=== PATIENT | female | born 1940 | race Caucasian/White ===

== ENCOUNTER 2023-11-21 06:15 | Inpatient (IN) | payer OTHER, SELFPAY ==
--- NOTE | 2023-11-15 09:10 | CM ---
Patient is scheduled for an elective R TKR on 11/21/23. Spoke with patient prior to surgery via telephone. Introduced role of Orthopedic Navigator. Patient reports that she lives with her in a multi story home. There are no steps to enter,
five steps to the second level and then a flight of steps to the third floor. There is a powder room on the file clerk data entry. She currently requires assistance with bed mobility and putting on socks and shoes, otherwise she functions independently. She
also has a rolling walker and shower seat. She has never had VN services. PCP is Dr. Reagan Vu.
Discussed orthopedic program and post surgical plans. Reviewed anticipated length of stay and that goal is for her to return home at discharge. Also reviewed outpatient PT. Patient is in agreement with tentative plan but will benefit from VN
services. She will have support from her when she goes home.
Patient will complete online education.
Plan: Orthopedic Navigator will remain available to assist with the care of patient and will reassess discharge needs after surgery.
[2023-11-16 08:24] VITALS: BMI 24.5
[2023-11-16 10:03] LABS: Hematocrit 40.4 % (37.0-47.0); Hemoglobin 13.4 g/dL (12.0-16.0); Mean Corp Hgb Conc. 33.2 g/dL (33.0-37.0); Mean Corpuscular Volume 90.6 fL (81.0-99.0); Mean Platelet Volume 9.1 fL (7.4-10.4); Platelet Count 429 10^3/uL (130-400); Red Blood Cell Count 4.46 10^6/uL (4.20-5.40); Red Cell Dist. Width 13.4 % (11.5-14.5); White Blood Cell Count 5.4 10^3/uL (4.8-10.8)
[2023-11-16 10:24] LABS: ALT (SGPT) 46 U/L (0-35); AST (SGOT) 61 U/L (14-36); Albumin 3.5 g/dl (3.5-5.0); Alkaline Phosphatase 63 U/L (38-126); Blood Urea Nitrogen 9 mg/dl (7-17); Calcium 9.4 mg/dl (8.4-10.2); Carbon Dioxide 31 mmol/L (22-30); Chloride 99 mmol/L (98-107); Estimated Creatinine Clearance 49 ml/min; Glucose 93 mg/dl (70-99); Sodium 137 mmol/L (135-145); Total Bilirubin 0.8 mg/dl (0.2-1.3); Total Protein 5.8 g/dl (6.3-8.2); eGFR > 60.00
[2023-11-16 12:00] LABS: Glycohemoglobin (HgbA1c) 6.1 % (4.0-5.6)
[2023-11-16 16:21] VITALS: BMI 24.5
[2023-11-21] VITALS (16 sets, daily range): BP systolic 110–145; BP diastolic 50–72; PULSE 60; O2SAT 95
[2023-11-21] MEDS: NORMOSOL-R 1000 IV ×2 (08:09→14:00)
[2023-11-21] MEDS: TYLENOL 650 MG PO ×3 (08:13→20:02)
[2023-11-21] MEDS: CELEBREX 200 MG PO (08:14)
[2023-11-21] MEDS: ASPIRIN 325 MG PO (17:51)
[2023-11-21] MEDS: ANCEF 5 IV (17:51)
[2023-11-21] MEDS: TOPROL XL 25 MG PO (17:52)
[2023-11-21] MEDS: DILAUDID 0.5 MG IV ×2 (17:52→21:57)
[2023-11-21] MEDS: SINGULAIR 10 MG PO (17:52)
[2023-11-21] MEDS: BACTROBAN 2% OINTMENT 1 APPLIC NASAL (20:01)
[2023-11-21] MEDS: COLACE 100 MG PO (20:02)
[2023-11-21] MEDS: ULTRAM 50 MG PO (20:02)
[2023-11-21] MEDS: DECADRON 4 MG PO (20:02)
[2023-11-21] MEDS: SENOKOT 17.1999999999999993 MG PO (20:02)
[2023-11-21] MEDS: TORADOL 15 MG IV (20:03)
[2023-11-21] MEDS: PEPCID 20 MG PO (21:57)
[2023-11-21] MEDS: LIPITOR 20 MG PO (21:58)
[2023-11-21] MEDS: NEURONTIN 300 MG PO (21:58)
[2023-11-22] MEDS: TYLENOL PO ×2 (00:08→05:02)
[2023-11-22] MEDS: ANCEF 5 IV (01:11)
[2023-11-22 03:10] VITALS: BP 113/56
[2023-11-22 08:10] VITALS: BP 130/95
[2023-11-22] MEDS: ROXICODONE 10 MG PO (08:39)
[2023-11-22] MEDS: BACTROBAN 2% OINTMENT 1 APPLIC NASAL (08:40)
[2023-11-22] MEDS: MOBIC 15 MG PO (08:40)
[2023-11-22] MEDS: ASPIRIN 325 MG PO (08:40)
[2023-11-22] MEDS: COLACE 100 MG PO (08:41)
[2023-11-22] MEDS: TYLENOL 650 MG PO (08:41)
[2023-11-22] MEDS: ULTRAM 50 MG PO (08:41)
[2023-11-22] MEDS: TORADOL 15 MG IV (08:41)
[2023-11-22] MEDS: SENOKOT 17.1999999999999993 MG PO (08:41)
[2023-11-22] MEDS: DECADRON 4 MG PO (08:42)
--- NOTE | 2023-11-22 08:43 | CM ---
Addendum entered by Fanny Hernandez 11/22/23 11:47:
Patient worked with PT and OT. OT recommends home OT. Discussed with patient who is in agreement. VN referral updated and OT and LOANS OFFICER added.
Call placed to patient's daughter. Update provided. She will be present for discharge instructions.
Original Note:
Reviewed chart and held rounds with PT, OT and nursing. Patient admitted as planned for elective R TKR. Met with patient at bedside. Confirmed information previously obtained for assessment. Also discussed discharge plans. The plan is for patient to
return home at discharge. She will have support from her when she goes home. Reviewed VN services including start of care (tentatively 11/23), services to be ordered (PT, SN) and frequency/duration of services. Options list provided and PAC
data reviewed. Patient selects VN. Also reviewed need to schedule two week follow up with PA at Dr. Robins's office for removal of ashley.
Patient has a shower seat and a cane at home. She will need a rolling walker issued at discharge; script obtained and given to PT.
VN referral was completed and sent to [facility] through [facility] with request for start of care on 11/23. Confirmation received of their ability to accept case. clerk stenographer to fax discharge instructions to [facility] when complete.
Patient will use [facility] pharmacy for discharge prescriptions.
[2023-11-22 10:12] VITALS: BP 147/70; PULSE 66; O2SAT 92
--- NOTE | 2023-11-22 10:23 | W.PN.ORTHO ---
Today's Communication / Plan
-
d/c
Assessment
.
Distal Motor Intact: Yes
Dressing:
Clean, dry and intact.
Plan
.
Surgery / Date: Victor Hugo Robins 11/21/23
DVT Prophylaxis: Aspirin
Activity:
Out of bed.
PT/OT
Discharge Plan: Home w/ VN
Subjective
.
.:
Patient resting comfortably.
Vital Signs and Labs
.
Vital Signs and Labs:
Lab Results
11/16/23 08:01
11/16/23 08:01
Temp Pulse Resp BP Pulse Ox
98.3 F 61 18 130/95 96
11/22/23 08:10 11/22/23 08:10 11/22/23 08:10 11/22/23 08:10 11/22/23 08:10
Non-invasive Hgb result: 11.7
Physical Exam
-
HEENT: No pallor, cyanosis, or jaundice. Throat clear.
NECK: Supple. No JVD.
CVS: S1, S2 normal. RRR.�
ABDOMEN: Soft, non-tender. No distension. BS+/normal.
EXTREMITIES: strength equal, no calf pain with palpation
INDUSTRIAL ROOFER: AOx3. No focal deficits. special forces communications sergeant grossly intact
--- NOTE | 2023-11-22 10:30 | W.DS.TRANS ---
DC Summary - Manuscript Editor
-
Discharge Instructions:
Sleep Apnea Risk Low
Discharge Diagnosis/Procedures R TKA Dr. Robins 11/21/23
Diet As tolerated
Activity With Walker
Driving Restrictions No driving
Bathing Restrictions OK to Shower
Other Services PT,VN
Instructions:
Stand-Alone Forms: Total Hip/Knee Replacement D/C
Changes to Home Medications: Yes
Discharge Medications:
DC Medications w/original date entered in [facility]
albuterol sulfate 90 mcg/actuation aerosol inhaler 2 puff inhalation R Q4HPRN PRN SOB 03/22/20
cholecalciferol (vitamin D3) 50 mcg (2,000 unit) tablet 2,000 units PO DAILY Supplement 03/22/20
ibuprofen 200 mg tablet (Advil) 200 mg PO Q6H PRN PAIN 03/22/20
montelukast 10 mg tablet 10 mg PO 1800 asthma 03/22/20
simvastatin 40 mg tablet 40 mg PO HS High Cholesterol 03/22/20
glucosamine sulf dipot chlr,msm,chond 550 mg-C 30 mg-lolita 1 mg capsule (Glucosamine Chondroitin) 1 cap PO DAILY Supplement 11/15/23
metoprolol succinate 25 mg tablet,extended release 24 hr 25 mg PO 1800 Blood Pressure 11/15/23
brxgcwvenbld-lrsnkgir-dnpjxz tablet 1 tab PO DAILY Supplement 11/15/23
vitamin B complex (B Complex-Vitamin B12 tablet) 1 tab PO DAILY Supplement 11/15/23
mupirocin 2 % topical ointment 1 applic topical BID infection prevention #1 tube 11/16/23
acetaminophen 500 mg tablet 1,000 mg PO QID #0 tabs 11/22/23
aspirin 325 mg tablet 325 mg PO DAILY blood clot prevention #1 tab 11/22/23
dexamethasone 4 mg tablet 4 mg PO BID inflammation #6 tabs 11/22/23
docusate sodium 100 mg capsule (Colace) 100 mg PO BID stool softner #1 cap 11/22/23
famotidine 20 mg tablet 20 mg PO HS GI prophylaxis #30 tabs 11/22/23
gabapentin 300 mg capsule 300 mg PO HS sleep/pain #10 caps 11/22/23
magnesium hydroxide 400 mg/5 mL oral suspension (Milk of Magnesia) 30 ml PO HS PRN Constipation #1 mL 11/22/23
meloxicam 15 mg tablet 15 mg PO DAILY anti-inflammatory #14 tabs 11/22/23
ondansetron 4 mg disintegrating tablet 4 mg PO Q6H PRN n/v #20 tabs 11/22/23
oxycodone 5 mg tablet 5 - 10 mg PO Q6HPRN PRN 1 tab moderate-2 tabs severe pain #30 tabs 11/22/23
sennosides 8.6 mg tablet (Senokot) 17.2 mg PO BID laxative #2 tabs 11/22/23
Home Medication Changes
dexamethasone 4 mg tablet 4 mg PO BID inflammation #6 tabs 11/22/23
famotidine 20 mg tablet 20 mg PO HS GI prophylaxis #30 tabs 11/22/23
gabapentin 300 mg capsule 300 mg PO HS sleep/pain #10 caps 11/22/23
meloxicam 15 mg tablet 15 mg PO DAILY anti-inflammatory #14 tabs 11/22/23
ondansetron 4 mg disintegrating tablet 4 mg PO Q6H PRN n/v #20 tabs 11/22/23
oxycodone 5 mg tablet 5 - 10 mg PO Q6HPRN PRN 1 tab moderate-2 tabs severe pain #30 tabs 11/22/23
Pending Results: No
[2023-11-22 11:43] VITALS: BP 118/56; PULSE 59
== END 2023-11-22 13:35 | disposition home health service (06) | DRG 470 ==
LOC: 2 SOUTH 06:15
PROVIDERS: ADMITTING PHYSICIAN Orthopaedic Surgery; FAMILY PHYSICIAN Family Medicine; REFERRING PHYSICIAN Physician Assistant Medical
PROC: 0SRC069 Replacement of Right Knee Joint with Oxidized Zirconium on Polyethylene Synthetic Substitute, Cemented, Open Approach (ICD-10-PCS; 2023-11-21)
DX: M17.11 Unilateral primary osteoarthritis, right knee (principal)
CPT/HCPCS: 36415; 73560; 80053; 83036; 85027; 87070; 97110; 97116; 97162; 97166; 97530; 97535; C1713; C1776

== ENCOUNTER → 2024-01-03 15:25 | Outpatient (REF) | payer OTHER, SELFPAY | LOC: RAD 15:25 | PROVIDERS: ATTENDING PHYSICIAN Student in an Organized Health Care Education/Training Program; FAMILY PHYSICIAN Family Medicine | DX: M79.661 Pain in right lower leg (principal) | CPT/HCPCS: 93971 ==

== ENCOUNTER → 2024-05-19 09:32 | Outpatient (REF) | payer OTHER, SELFPAY | LOC: RST 09:32 | PROVIDERS: ATTENDING PHYSICIAN Internal Medicine Gastroenterology; FAMILY PHYSICIAN Family Medicine | DX: R13.19 Other dysphagia (principal) | CPT/HCPCS: 74221; 74230; 92611 ==

== ENCOUNTER → 2024-07-29 06:23 | Day surgery (SDC) | payer OTHER, SELFPAY | LOC: GI 06:23 | PROVIDERS: ATTENDING PHYSICIAN Internal Medicine Gastroenterology; FAMILY PHYSICIAN Family Medicine | DX: R63.4 Abnormal weight loss (principal); R68.81 Early satiety; R13.14 Dysphagia, pharyngoesophageal phase; K22.2 Esophageal obstruction; K44.9 Diaphragmatic hernia without obstruction or gangrene; K31.7 Polyp of stomach and duodenum; K25.9 Gastric ulcer, unspecified as acute or chronic, without hemorrhage or perforation; K31.89 Other diseases of stomach and duodenum; D13.2 Benign neoplasm of duodenum; K29.50 Unspecified chronic gastritis without bleeding; Q45.8 Other specified congenital malformations of digestive system | CPT/HCPCS: 43249; 88305; 88342 ==

== ENCOUNTER → 2024-11-12 13:03 | Outpatient (REF) | payer OTHER, SELFPAY | LOC: HWRAD 13:03 | PROVIDERS: ATTENDING PHYSICIAN Family Medicine | DX: J40 Bronchitis, not specified as acute or chronic (principal); R06.02 Shortness of breath; R53.83 Other fatigue; Z20.828 Contact with and (suspected) exposure to other viral communicable diseases | CPT/HCPCS: 71046 ==

== ENCOUNTER 2024-11-16 18:21 | Inpatient (IN) | payer OTHER, SELFPAY ==
[2024-11-16] VITALS (7 sets, daily range): BP systolic 103–145; BP diastolic 56–79; BMI 24.3; BMI 21.7
[2024-11-16 12:49] LABS: % Basophils 0.2 % (0-2); % Immature Granulocytes 0.8 % (0-0.5); % Lymphocytes 14.3 % (20.5-51.1); % Monocytes 6.9 % (1.7-9.3); % Neutrophils 77.8 % (42.2-75.2); Absolute Immature Granulocytes 0.1 10^3/uL (0-0.05); Absolute Lymphocytes 1.3 10^3/uL (1.2-3.4); Absolute Monocytes 0.6 10^3/uL (0.1-0.6); Hematocrit 42.6 % (37.0-47.0); Hemoglobin 13.9 g/dL (12.0-16.0); Mean Corp Hgb Conc. 32.6 g/dL (33.0-37.0); Mean Corpuscular Hgb 29.1 pg (27.0-31.0); Mean Corpuscular Volume 89.3 fL (81.0-99.0); Mean Platelet Volume 8.9 fL (7.4-10.4); Nucleated Red Blood Cells % 0 %; Platelet Count 431 10^3/uL (130-400); Red Blood Cell Count 4.77 10^6/uL (4.20-5.40)
[2024-11-16 13:00] LABS: ALT (SGPT) 20 U/L (0-35); AST (SGOT) 22 U/L (14-36); Albumin 3.7 g/dl (3.5-5.0); Alkaline Phosphatase 57 U/L (38-126); Blood Urea Nitrogen 16 mg/dl (7-17); Calcium 9.3 mg/dl (8.4-10.2); Carbon Dioxide 32 mmol/L (22-30); Chloride 100 mmol/L (98-107); Glucose 141 mg/dl (70-99); Potassium 3.8 mmol/L (3.5-5.1); Sodium 139 mmol/L (135-145); Total Bilirubin 0.5 mg/dl (0.2-1.3); Total Protein 6.2 g/dl (6.3-8.2); eGFR > 60.00
[2024-11-16 13:11] LABS: Troponin I < 0.012 ng/ml
[2024-11-16 13:28] LABS: NT-proBNP 486 pg/ml
[2024-11-16] MEDS: DUONEB 3 ML INH ×4 (14:53→21:42)
--- NOTE | 2024-11-16 17:17 | ED.GENMED ---
History of Present Illness
General
Chief Complaint: Breathing Problem
Source: patient and family
Time Seen by Provider: 11/16/24 14:12
History of Present Illness
History of Present Illness:
84-year-old female who presents with persistent shortness of breath. States started a week ago. She was given steroids and antibiotics by her PCP with no improvement. She has been using her 's nebulizer. Her recently .
Patient states her cough breath is progressed. Family reports he really did not see any improvement with the outpatient meds. No fevers or hemoptysis. No leg swelling.
Past History
Past History
ED Past Medical History: Asthma, COPD and Hypercholesterolemia
ED Past Surgical History: Appendectomy and Tonsilectomy
Social History
Tobacco: Non-smoker
Alcohol: None
Personal:
Living: with family
Phy Exam
Physical Exam
Physical Exam:
CONSTITUTIONAL Patient alert and oriented to person, place and time. Well-appearing. Vital signs reviewed.
HEAD atraumatic, normocephalic.
EYES eyelids normal to inspection, Extraocular muscles intact, Conjunctiva normal, Sclera normal.
NECK normal range of motion, Trachea midline, no jugular venous distention.
RESPIRATORY CHEST No respiratory distress noted, Chest expansion equal, wheezing bilaterally.
CARDIOVASCULAR regular rate and rhythm, Heart sounds normal.
ABDOMEN abdomen nontender, Bowel sounds normal. No distention.
BACK normal inspection, no obvious deformities
UPPER EXTREMITY range of motion normal, Motor strength normal, no cyanosis, no edema.
LOWER EXTREMITY range of motion normal, Motor strength normal, no cyanosis, no edema.
NEURO Speech normal, No focal motor deficits, [place] coma scale 15, Memory normal, Cranial Nerves intact to screening exam.
SKIN skin warm, dry, and normal in color.
Scores
Heart Failure Risk
Heart Failure Risk Score: Not Applicable
Course
Orders/Labs/Results
Orders:
Orders
11/16/24 12:20
Electrocardiogram (*1) Urgent
Reason for Study: Shortness of Breath
EKG- Treatment ONCE
11/16/24 12:32
Cardiac Monitoring- Treatment ONCE
IV Insert/Care/Rem.- Treatment PRN
O2 Therapy [RESP] Urgent
Titrate/Wean O2 to maintain O2 sat greater than (%): 93
Special Instructions: TO MAINTAIN CONTINUOUS O2 SATS >/= 93%
Pulse Ox/cont/shift [RESP] Urgent
Quantity: 1
Special Instructions: continuous pulse ox
11/16/24 12:39
Complete Blood Count/With Diff Urgent
Comprehensive Metabolic Panel Urgent
NT-proBNP Urgent
Troponin I Urgent
11/16/24 14:37
Ipratropium/Albuterol Sulfate [Duoneb] 3 ml INH R NOW ONE
Ipratropium/Albuterol Sulfate [Duoneb] 3 ml INH R NOW STA
Ipratropium/Albuterol Sulfate [Duoneb] 3 ml INH R NOW STA
CR Chest - 2 Views Urgent
Comment:
Reason For Exam: SOB
11/16/24 14:57
Respiratory Syncytial Virus Urgent
BERNABE Source: Nasal Swab
Specimen Description:
Date Specimen was Collected: 11/16/24
Time Specimen was Collected: 14:56
11/16/24 Dinner
Regular
At Your Request: Full Participation
11/16/24 17:16
Dexamethasone Sod Phosphate [Decadron] 10 mg IV NOW STA
11/16/24 17:55
Admit/Transfer Patient As Directed
Co-Sign Provider:
Level of Care: Inpatient admission
Assign to:: Telemetry
Physician / Group: Erlin Michel
Diagnosis: Dyspnea
Reason for Telemetry: Arrhythmia
Date to Stop Telemetry: 11/19/24
Time to Stop Telemetry: 11:00
Reason for Hospitalization: Dyspnea with likely CO2 retention, concerns for COPD > possible pulmonary fibrosis
Expected length of stay greater than two midnights?: Yes
ELOS- Estimated Length of Stay in days: 3
I certify the patient meets the requirements for IP care: Yes
PRN Pain Medication Management As Directed
May give lesser potent ordered pain med per pt: Yes
preference::
Protocol:: Medication orders for pain may be administered in a
manner that supports deferring to patient preference
when the pt is:
- Requesting an ordered lesser potent pain medication.
Least to most potent pain medications are defined
as: acetaminophen < NSAID < tramadol < opioids
(morphine, oxycodone, hydromorphone).
- Requesting a lesser dose of the same medication IF
ORDERED.
- Requesting a less intrusive route of administration
if both routes are prescribed by the provider (PO <
IV).
11/16/24 17:59
Code Status As Directed
Resuscitation Status: Full Code
11/16/24 18:15
COVID-19 Antigen Routine
Source: Nasal Swab
Influenza A+B Rapid Molecular Routine
BERNABE Source: Nasal Swab
Specimen Description:
11/16/24 18:19
PULMONARY CONSULT Routine
Consulting Provider: Toy Moseley
Was physician already notified: Yes
Reason for consult: Dyspnea, Likely COPD
11/16/24 19:59
Albuterol [ProAIR HFA INHALER] 2 puff INH R Q4HPRN PRN
Bisacodyl [Dulcolax] 10 mg RECTAL [id number] PRN
Docusate W/Senna [Senokot-S] 1 tablet PO BIDPRN PRN
Enoxaparin Sodium [Lovenox] 40 mg SC QPM
Ipratropium/Albuterol Sulfate [Duoneb] 3 ml INH R Q4HPRN PRN
Metoprolol Xl [Toprol Xl] 25 mg PO DAILY@1800
Polyethylene Glycol Powder [Miralax] 17 grams PO DAILYPRN PRN
11/16/24 19:59
CT Chest W/o Iv Contrast Routine
Comment:
Reason For Exam: dyspnea, concern for COPD/pulm fibrosis
Activity As Directed
Activity Level: Out of Bed-Early Mobility
Intake/ Output As Directed
Frequency: Per unit guidelines
Vital Signs As Directed
Frequency: Per unit guidelines
O2 Therapy [RESP] Routine
Titrate/Wean O2 to maintain O2 sat greater than (%): 88
DX Deep Vein Thrombosis Video Routine
11/16/24 20:00
Ipratropium/Albuterol Sulfate [Duoneb] 3 ml INH R QID
11/16/24 21:00
Montelukast Sodium [Singulair] 10 mg PO DAILY@1800
11/16/24 21:04
Venous Blood Gas Routine
%Oxygen/Room Air: RA
11/16/24 22:00
Atorvastatin [Lipitor] 20 mg PO HS
Famotidine [Pepcid] 20 mg PO HS
11/17/24 00:00
Acetaminophen [Tylenol] 1,000 mg PO Q6
11/17/24 06:00
Basic Metabolic Panel IN AM
Complete Blood Count/With Diff IN AM
Magnesium IN AM
Venous Blood Gas IN AM
%Oxygen/Room Air: RA
11/17/24 08:00
Cholecalciferol (Vitamin D3) [VITAMIN D3 (cholecalciferol)] 50 mcg PO DAILY
Dexamethasone Sod Phosphate [Decadron] 6 mg IV Q24H
Multivitamin [Theragran] 1 tablet PO DAILY
11/19/24 11:00
DC Protocol for Telemetry ONCE
Abnormal Lab Results
11/16/24
12:39
MCHC 32.6 L g/dL
(33.0-37.0)
Plt Count 431 H 10^3/uL
(130-400)
Abs Immat Gran (auto) 0.1 H 10^3/uL
(0-0.05)
Absolute Neuts (auto) 7.0 H 10^3/uL
(1.4-6.5)
Immature Gran % 0.8 H %
(0-0.5)
Neutrophils % 77.8 H %
(42.2-75.2)
Lymphocytes % 14.3 L %
(20.5-51.1)
Carbon Dioxide 32 H mmol/L
(22-30)
Creatinine 0.5 L mg/dL
(0.6-1.0)
Glucose 141 H mg/dl
(70-99)
Total Protein 6.2 L g/dl
(6.3-8.2)
11/16/24 12:39
11/16/24 12:39
Vital Signs
Initial and Last Documented VS:
Initial Vital Signs
Temp Pulse Resp BP Pulse Ox
98.4 F 76 22 121/57 91
11/16/24 12:29 11/16/24 12:29 11/16/24 12:29 11/16/24 12:29 11/16/24 12:29
Last Documented Vital Signs
Temp Pulse Resp BP Pulse Ox
97.5 F 77 18 145/79 91
11/16/24 19:50 11/16/24 19:50 11/16/24 19:50 11/16/24 19:50 11/16/24 19:50
MDM/Problems Addressed
MDM/Problems Addressed:
Reactive airway disease, COPD exacerbation, hypoxia, possible pulmonary fibrosis
*Radiology
Radiology exam reviewed: radiology read reviewed
*Pulse Oximetry
Patient hypoxic: yes
*EKG
Interpretation: abnormal
Rate: normal
Rhythm: sinus
QRS Pattern: low voltage
Ischemia: non-specific ST changes
*Director Consumer Interpretation
Rate: normal
Interpretation: normal
Rhythm: sinus
*Critical Care Note
Total Time (30-74mins, 75-104mins- exclusive of procedures): Not Applicable
Data Reviewed
Review of Other/Old Records Reveals: Radiology Studies (Chest x-ray reviewed from November 12, 2024 showing COPD and no focal infiltrate)
Source: patient and family
Prescriptions/Medications Considered But Not Given:
Considered antibiotics but no focal betrays was already on antibiotics
Patient Management
Discussion with other providers: Hospitalist
Escalation/DeEscalation of care consider admission/obs:
Pulse ox does remain 80 to 89% at times. Has not had improvement with outpatient management. Give IV Decadron bronchodilators and admit
ED Attending Note
-
Portions of this chart may have been created with voice recognition software.� Occasional wrong word or��sound alike� substitutions may have occurred due to the inherent limitations of voice recognition software.
Discharge Plan
Departure
Patient Disposition: Admit
Date of Disposition: 11/16/24
Time of Disposition: 17:17
Admit to: Telemetry
Presentation/result/management discussed w/ accepting MD/DO: Hospitalist
Discharge Problem:
RAD (reactive airway disease), Hypoxia
Interventions
Interventions:
*Risk Screen - Suicide Last Done: 11/16/24 20:14
*General Assessment Last Done: 11/16/24 12:29
*Neglect/Abuse Screening Last Done: 11/16/24 12:29
ED- Fall Risk Assessment Last Done: 11/16/24 18:42
*ED COVID-19 Vaccine History Last Done: 11/16/24 20:14
*Nursing Disposition Last Done: 11/16/24 19:54
ED- Cardiac Assessment Last Done: 11/16/24 15:00
ED- Pulmonary Assessment Last Done: 11/16/24 15:00
Discharge Date and Time
Discharge Date/Time: 11/16/24 19:54
--- NOTE | 2024-11-16 17:52 | HPS.HSE ---
Family Physician
-
Family Physician: Phill Vega
Chief Complaint
-
Dyspnea
History of Present Illness
84-year-old female with RAD/asthma, HTN, HLD, oroesophageal dysphagia, H/O SVT presenting to the hospital with a complaint of dyspnea. Symptoms have been persistent over close to a week, was started on prednisone 20 mg by outside physician. Upon
arrival to the ED AFVSS, no hypoxemia but SpO2 borderline near 90%. Lab studies with CO2 32 though otherwise unremarkable. BNP low, troponin negative. ECG with low voltage in sinus arrhythmia though no ST deviation or T wave abnormality. Chest
x-ray without findings of acute processes in the chest though did mention stable findings of pulmonary fibrosis with flattened diaphragm consistent for COPD. In the ED was given DuoNebs x 3 and 10 mg IV dexamethasone.
Medical History
Past Medical History
Past Medical History: Reports Asthma, HTN and Hypercholesterolemia
Past Surgical History: Reports Orthopedic (Right knee replacement)
Social History
Tobacco: Former Smoker
Alcohol: None
Drug: None
Family History
Family History: Not pertinent
Allergies / Home Medications
Allergies reflects when Allergies were last updated in [facility].
Home Medications with original date entered in [employer]
Allergy/Medication List:
Allergies
Allergy/AdvReac Type Severity Reaction Status Date / Time
No Known Allergies Allergy Verified 11/16/24 12:29
Home Medications
albuterol sulfate 90 mcg/actuation aerosol inhaler 2 puff inhalation R Q4HPRN PRN SOB 03/22/20
cholecalciferol (vitamin D3) 50 mcg (2,000 unit) tablet 2,000 units PO DAILY Supplement 03/22/20
montelukast 10 mg tablet 10 mg PO 1800 asthma 03/22/20
simvastatin 40 mg tablet 40 mg PO HS High Cholesterol 03/22/20
glucosamine sulf dipot chlr,msm,chond 550 mg-C 30 mg-lolita 1 mg capsule (Glucosamine Chondroitin) 1 cap PO DAILY Supplement 11/15/23
metoprolol succinate 25 mg tablet,extended release 24 hr 25 mg PO 1800 Blood Pressure 11/15/23
npnuimeizzqm-mvwvtkii-iupzrv tablet 1 tab PO DAILY Supplement 11/15/23
acetaminophen 500 mg tablet 1,000 mg (2 x 500 mg) PO QID #0 tabs 11/22/23
famotidine 20 mg tablet 20 mg PO HS GI prophylaxis #30 tabs 11/22/23
meloxicam 15 mg tablet 15 mg PO DAILY anti-inflammatory #14 tabs 11/22/23
Review of Systems
-
History Source: Patient
A 12 point ROS was completed and negative except as noted: Yes
Constitutional: Reports No Symptoms
EENT: Reports No Symptoms
Respiratory: Reports See HPI
Cardiac: Reports No Symptoms
Abdomen/GI: Reports No Symptoms
: Reports No Symptoms
Musculoskeletal: Reports No Symptoms
Skin: Reports No Symptoms
Neurological: Reports No Symptoms
Endocrine: Reports No Symptoms
Hematologic/Lymphatic: Reports No Symptoms
Psych: Reports No Symptoms
Physical Exam
Vital Signs
Vital Signs
Temp Pulse Resp BP Pulse Ox
98.4 F 76 22 121/57 91
11/16/24 12:29 11/16/24 12:29 11/16/24 12:29 11/16/24 12:29 11/16/24 12:29
Physical Exam
General: Well Developed, No Apparent Distress and Comfortable
HEENT: NormoCephalic, Anicteric, Moist mucous membranes, Atraumatic and PERRLA
Respiratory: Wheezes and Non Labored Respirations; No Rales, Rhonchi or Accessory Resp Muscle Use
Cardiac: S1/S2 and Regular Rhythm; No Murmur, Rub, Gallop or Peripheral Edema
GI: Soft, Non Tender, Non Distended and Normal Bowel Sounds
Musculoskeletal: No Clubbing and No Cyanosis
Skin: Warm and Dry; No Rash
Neuro: AO x 3 and Nonfocal/grossly intact; No Tremors
Psych: Calm
Laboratory Results
-
11/16/24 12:39
11/16/24 12:39
Laboratory Results
Total Bilirubin 0.5 mg/dl (0.2-1.3) 11/16/24 12:39
AST 22 U/L (14-36) 11/16/24 12:39
ALT 20 U/L (0-35) 11/16/24 12:39
Alkaline Phosphatase 57 U/L (38-126) 11/16/24 12:39
Troponin I < 0.012 ng/ml 11/16/24 12:39
Data Reviewed
-
Lab Data: Labs Reviewed by me, Discussed with Physician (Pulmonology) and Discussed with Patient
Impression/Plan
-
#Acute hypoxemic and hypercapnic respiratory insufficiency
#History of RAD/asthma
-Differential diagnosis includes COPD versus pulmonary fibrosis versus nonspecific ILD
-Presented with shortness of breath, was on prednisone 20 prescribed as an OP with minimal improvement
-No hypoxemia here, SpO2 has been consistently higher than 90%; RSV negative, flu/COVID pending
-X-ray without acute processes, did show findings of possible COPD and pulmonary fibrosis
-No recent chest CTs within the chart to review; BMP with elevated CO2
-Currently on 1-2L with SpO2 90%
Plan
-Continue with IV dexamethasone 6 mg daily and home Singulaire
-Continue with bronchodilators standing and as needed Q4H
-Order chest CT to better assess lung parenchyma for UIP versus NSIP
-Order VBG to further assess CO2, repeat tomorrow morning
-Will likely need commercial intelligence manager for PFTs and 6-minute walk test
-Pulmonology consult here, likely needs LABA/LAMA inhaler
-Follow-up flu and COVID testing for completeness
-SpO2 goal 88-94%
#Primary hypertension
-No known history of hypertensive systemic disease
-Home medications include metoprolol succinate, no first-line agents
-Blood pressure currently well-controlled, will monitor
#Hyperlipidemia
-No known history of ASCVD
-Home medications include simvastatin nightly
#H/O SVT
-Undifferentiated, not on anticoagulants
-Remains on metoprolol succinate for BP
-ECG here with sinus arrhythmia though heart rate WNL
-Telemetry
#H/O right TKA
-Tylenol as needed for arthritic pain
DVT prophylaxis: Lovenox
Diet: Regular
CODE STATUS: Full code
Discussed case with ED attending and commercial intelligence manager
[2024-11-16] MEDS: DECADRON 10 MG IV (18:09)
[2024-11-16 18:34] LABS: COVID-19 Antigen Negative (Negative)
[2024-11-16] MEDS: LOVENOX 40 MG SC (21:06)
[2024-11-16] MEDS: TOPROL XL 25 MG PO (21:07)
[2024-11-16] MEDS: PEPCID 20 MG PO (21:07)
[2024-11-16] MEDS: SINGULAIR 10 MG PO (21:07)
[2024-11-16] MEDS: LIPITOR 20 MG PO (21:07)
[2024-11-16 21:10] LABS: Venous Blood Gas B.E. 5.9 mmol/L (-4 to +4); Venous Blood Gas HCO3 29.7 mmol/L (22-27); Venous Blood Gas O2 Sat % 99.9 %; Venous Blood Gas pCO2 39 mmHg (35-48); Venous Blood Gas pH 7.49 (7.32-7.43); Venous Blood Gas pO2 157 mmHg (30-50)
[2024-11-16] MEDS: TYLENOL PO (23:02)
[2024-11-17 03:05] VITALS: BP 149/60
[2024-11-17] MEDS: TYLENOL PO (05:04)
[2024-11-17 06:42] LABS: Venous Blood Gas B.E. 5.6 mmol/L (-4 to +4); Venous Blood Gas HCO3 31.1 mmol/L (22-27); Venous Blood Gas O2 Sat % 88.2 %; Venous Blood Gas pCO2 48 mmHg (35-48); Venous Blood Gas pH 7.42 (7.32-7.43); Venous Blood Gas pO2 56 mmHg (30-50)
[2024-11-17] MEDS: DUONEB 3 ML INH ×4 (07:32→19:53)
[2024-11-17 07:39] VITALS: BP 148/74
[2024-11-17] MEDS: THERAGRAN 1 TABLET PO (08:17)
[2024-11-17] MEDS: VITAMIN D3 (cholecalciferol) 50 MCG PO (08:17)
[2024-11-17] MEDS: DECADRON 6 MG IV (08:17)
[2024-11-17 08:27] LABS: % Basophils 0.3 % (0-2); % Immature Granulocytes 1.2 % (0-0.5); % Lymphocytes 14.5 % (20.5-51.1); % Monocytes 5.1 % (1.7-9.3); % Neutrophils 78.9 % (42.2-75.2); Absolute Immature Granulocytes 0.1 10^3/uL (0-0.05); Absolute Monocytes 0.4 10^3/uL (0.1-0.6); Absolute Neutrophils 5.4 10^3/uL (1.4-6.5); Hemoglobin 12.8 g/dL (12.0-16.0); Mean Corp Hgb Conc. 32.8 g/dL (33.0-37.0); Mean Corpuscular Hgb 29.8 pg (27.0-31.0); Mean Corpuscular Volume 90.9 fL (81.0-99.0); Mean Platelet Volume 9.3 fL (7.4-10.4); Nucleated Red Blood Cells % 0 %; Platelet Count 416 10^3/uL (130-400); Red Blood Cell Count 4.29 10^6/uL (4.20-5.40); Red Cell Dist. Width 14.4 % (11.5-14.5); White Blood Cell Count 6.8 10^3/uL (4.8-10.8)
--- NOTE | 2024-11-17 08:50 | W.PN.HOSP.TC ---
Today's Communication/Plan
-
see bold
Assessment / Plan
Assessment / Plan
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 Symptoms have been persistent over close to a week, was started on prednisone 20 mg by outside physician.
Upon arrival to the ED AFVSS, no hypoxemia but SpO2 borderline near 90%. Lab studies with CO2 32 though otherwise unremarkable. BNP low, troponin negative. ECG with low voltage in sinus arrhythmia though no ST deviation or T wave abnormality.
Chest x-ray without findings of acute processes in the chest though did mention stable findings of pulmonary fibrosis with flattened diaphragm consistent for COPD. In the ED was given DuoNebs x 3 and 10 mg IV dexamethasone.
#Acute hypoxemic and hypercapnic respiratory insufficiency
#Acute COPD exacerbation
RSV negative, flu/COVID pending
Currently requiring 2 L of oxygen, down from 4. She does not wear oxygen at home
Appreciate pulmonology input, continue IV steroids, plan to transition to prednisone tomorrow
Add doxycycline for anti-inflammatory
#Right upper lobe lung nodule suspicious for malignancy
Son and patient are aware of this diagnosis
Pulmonology recommends outpatient PET scan and follow-up
#Bereavement
passed on 11/10/2024
Provide emotional support
#Primary hypertension
-No known history of hypertensive systemic disease
-Home medications include metoprolol succinate, no first-line agents
-Blood pressure currently well-controlled, will monitor
#Hyperlipidemia
-No known history of ASCVD
-Home medications include simvastatin nightly
#H/O SVT
-Undifferentiated, not on anticoagulants
-Remains on metoprolol succinate for BP
-ECG here with sinus arrhythmia though heart rate WNL
#H/O right TKA
-Tylenol as needed for arthritic pain
DVT prophylaxis: Lovenox
CODE STATUS: Full code
Updated son on phone 11/17
Total time spent to see the patient on the floor, examine the patient, review data and lab results, discuss treatment plan with patient, nursing staff around 50 minutes.
Physical Exam
General: No acute distress
HEENT: Normocephalic, Atraumatic, EOMI, MMM
Respiratory: Diminished breath sounds in all lung reese
Cardiac: Normal S1/S2, Regular Rate and Rhythm
GI: Soft, Nontender, Nondistended, Normal Bowel Sounds
Extremities: No Clubbing, Cyanosis, or Edema
Neuro: Nonfocal/Grossly Intact
Psych: Calm, Cooperative
Derm: No Visible lesions
Anticipated Discharge: 24 - 48 hours
Subjective/Interval History
-
Date of Service: November 17, 2024
Patient reports her breathing is 50% improved. She has a dry cough. No chest pain, no fever, no vomiting.
Objective Data
-
Labs:
Laboratory Results
11/17/24
06:26
WBC 6.8
Hgb 12.8
Hct 39.0
Plt Count 416 H
Sodium Pending
Potassium Pending
Chloride Pending
Carbon Dioxide Pending
BUN Pending
Creatinine Pending
Glucose Pending
Calcium Pending
Vital Signs:
Vital Signs
Temp Pulse Resp BP Pulse Ox
98.7 F 61 20 148/74 99
11/17/24 07:39 11/17/24 07:39 11/17/24 07:39 11/17/24 07:39 11/17/24 07:39
I&O
11/16/24 11/17/24 11/18/24
06:59 06:59 06:59
Intake Total 100 / 100
Balance 100 / 100
[2024-11-17 09:11] LABS: Blood Urea Nitrogen 14 mg/dl (7-17); Calcium 8.9 mg/dl (8.4-10.2); Carbon Dioxide 28 mmol/L (22-30); Chloride 102 mmol/L (98-107); Estimated Creatinine Clearance 48 ml/min; Glucose 137 mg/dl (70-99); Potassium 4.1 mmol/L (3.5-5.1); Sodium 138 mmol/L (135-145); eGFR > 60.00
[2024-11-17 11:02] VITALS: BP 129/60
[2024-11-17] MEDS: PULMICORT 0.5 MG INH ×2 (11:15→19:53)
[2024-11-17] MEDS: TYLENOL 1000 MG PO ×3 (12:47→20:20)
--- NOTE | 2024-11-17 13:36 | CON.PUL ---
Consultation
Consultation Request
Date/Time Consultation Requested: 11/17/2024
Date/Time Consultation Performed: 11/17/2024
Requesting Provider: Dr. Michel
Performing Provider: Dr. Haja Green
Reason for Consultation: Acute hypoxemic and hypercapnic respiratory failure-abnormal chest x-ray
Medical History
-
History of Present Illness:
84-year-old woman with history of asthma/reactive airways, hypertension, hyperlipidemia, dysphagia, history of SVT who presented to the hospital on 11/16/2024 complaining of dyspnea. Reports symptoms for about a week. She was started on low-dose
prednisone for pulmonary symptoms in the outpatient setting.
In the emergency room patient found to be hypoxemic at 90%. Rest of the evaluation was negative including cardiac enzymes and proBNP.
Chest x-ray with chronic interstitial changes and signs of hyperinflation.
She was given nebulizers and IV corticosteroids for possibility of an exacerbation of asthma/COPD.
Pulmonary consulted for evaluation and management.
-
Patient states that her last Sunday. She has been losing weight due to lack of appetite, her used to cook for her and she is unable to get proper meals. She feels debilitated.
Currently feels better since admission
Has coughing and occasional difficulty expectorating.
Denies knowing About emphysema.
Denies any headache or blurry vision.
Past Medical History
Past Medical History: Other (See assessment and plan)
Social History
Tobacco: Former Smoker
Alcohol: None
Drug: None
Family History
Family History: Reviewed & Not Pertinent
Allergies / Home Medications
Allergies
Allergy/AdvReac Type Severity Reaction Status Date / Time
No Known Allergies Allergy Verified 11/16/24 12:29
Home Medications
�Medication �Instructions �Recorded �Confirmed �Last Taken �Type
montelukast 10 mg tablet 10 mg PO DAILY asthma 03/22/20 11/16/24 11/16/24 History
simvastatin 40 mg tablet 40 mg PO HS High Cholesterol 03/22/20 11/16/24 Unknown History
metoprolol succinate 25 mg 25 mg PO DAILY Blood Pressure 11/15/23 11/16/24 11/16/24 History
tablet,extended release 24 hr
aspirin 81 mg tablet,delayed 81 mg PO DAILY Blood Clot 11/16/24 11/16/24 11/16/24 History
release Prevention/Tx
cholecalciferol (vitamin D3) 25 25 mcg PO DAILY Supplement 11/16/24 11/16/24 11/16/24 History
mcg (1,000 unit) tablet (Vitamin
D3)
cyanocobalamin (vitamin B-12) 1,000 mcg PO DAILY Supplement 11/16/24 11/16/24 11/16/24 History
1,000 mcg tablet
glucosamine sulf dipot 1 cap PO DAILY Supplement 11/16/24 11/16/24 11/16/24 History
chlr,msm,chond 550 mg-C 30 mg-lolita
1 mg capsule (Glucosamine
Chondroitin)
ibuprofen 200 mg capsule 200 mg PO BID Pain 11/16/24 11/16/24 11/16/24 History
prednisone 20 mg tablet 40 mg PO UD Anti-Inflammatory 11/16/24 11/16/24 11/15/24 History
40 mg
therapeutic multivitamin 1 tab PO DAILY Supplement 11/16/24 11/16/24 11/16/24 History
Review of Systems
-
History Source: Patient
All other systems: Negative unless noted
Vitals / Labs / Diagnostic Testing
Vital Signs
Temp Pulse Resp BP Pulse Ox
98.3 F 61 16 129/60 95
11/17/24 11:02 11/17/24 11:18 11/17/24 11:18 11/17/24 11:02 11/17/24 11:18
Lab Data
11/17/24 06:26
11/17/24 06:26
Microbiology
11/16/24 18:15 Nasal Swab Influenza Types A & B (BILL) - Final
Negative for Influenza A & B, NAAT
Negative results must be combined with clinical observations
and patient history.
Nucleic Acid Amplification test (NAAT)performed on the
[employer] platform.
11/16/24 14:57 Nasal Swab Respiratory Syncytial Virus Ag - Final
Negative for Respiratory Syncytial Virus.
A false negative result may be obtained with a specimen
collected early in the acute phase. If symptoms persist, a
new specimen should be tested.
Diagnostic Testing:
Physical Exam
-
HEENT: Normocephalic
Cardiovascular: S1/S2
Respiratory: Wheeze (Not significant) and Rhonchi (Left base)
GI: Soft and Non Distended
Neurology: Awake
Skin: Warm
General: Respiratory Distress (n), Comfortable and Other (Able to speak in full sentences)
Assessment
-
84-year-old woman admitted with shortness of breath and coughing, found to be hypoxemic on admission. We were consulted for evaluation of possible exacerbation of COPD.
Hypoxemic respiratory failure
Negative cardiac biomarkers/proBNP 486
Negative COVID
Negative influenza
Negative RSV
Negative MRSA screening
Acute exertional asthma/COPD-likely tracheobronchitis. No evidence for pneumonia on CAT scan.
CT chest 11/17/2024: Spiculated noncalcified right upper lobe pulmonary nodule concerning for malignancy 1.6X 0.8 cm
No significant parenchymal airway disease. No hilar or mediastinal lymph nodes. No axillary lymphadenopathy.
There is centrilobular emphysema present.
Moderate atherosclerosis vascular disease.
Lung nodule incidental finding on CAT scan 11/17/2024
Conditions present prior admission:
History of asthma
Hypertension
Hyperlipidemia
History of SVT
History of right total knee replacement
Former smoker
Assessment and plan:
Clinical picture consistent with acute exacerbation of COPD-clinically improved.
Not significantly bronchospastic 11/17/2024.
Suspect part of the symptom complex is due to grieving as well, patient lost her last Sunday. She also has been losing weight as the used to cook for her. Her appetite has decreased significantly.
She feels debilitated.
-
Admitted with shortness of breath and mild hypoxemia.
Continue ox supplementation to maintain pulse ox above 90%. Home oxygen assessment plan discharge
Currently on low rate supplemental oxygen
-
COPD-has emphysema on CAT scan. Does not take inhalers in the outpatient setting. Does not follow-up with pulmonary.
Former smoker
Continue nebulizer therapy with DuoNebs 4 times a day
Continue IV corticosteroids 6 mg IV daily. Transition to prednisone tomorrow if she continues to improve.
Continue Pulmicort nebulizer twice a day
-
No evidence for acute infection at this point. Hold antibiotics.
Monitor for fevers/No leukocytosis.
-
Right upper lobe pulmonary nodule: Suspicious for malignancy given prior smoking history, age and emphysema on CAT scan.
No prior imaging to compare.
Discussed with patient
High risk situation
Recommend outpatient PET/CT.
Recommend outpatient pulmonary follow-up in the short-term.
-
Weight loss/deconditioning also playing a role.
Physical therapy/Occupational Therapy
She has been losing weight and likely also muscle mass due to decreased appetite.
-
Will follow-up
[2024-11-17 15:15] VITALS: BP 121/67
[2024-11-17] MEDS: SINGULAIR 10 MG PO (17:04)
[2024-11-17] MEDS: LOVENOX 40 MG SC (17:05)
[2024-11-17] MEDS: TOPROL XL 25 MG PO (17:05)
[2024-11-17 19:34] VITALS: BP 114/56
[2024-11-17] MEDS: LIPITOR 20 MG PO (19:48)
[2024-11-17] MEDS: PEPCID 20 MG PO (19:48)
[2024-11-17] MEDS: VIBRAMYCIN 100 MG PO (19:49)
[2024-11-17 22:42] VITALS: BP 127/67
[2024-11-18] VITALS (8 sets, daily range): BP systolic 112–155; BP diastolic 50–74; PULSE 58; O2SAT 96
[2024-11-18] MEDS: PULMICORT 0.5 MG INH ×2 (05:44→19:32)
[2024-11-18] MEDS: DUONEB 3 ML INH ×4 (05:44→19:32)
[2024-11-18] MEDS: DECADRON 6 MG IV (07:30)
[2024-11-18] MEDS: THERAGRAN 1 TABLET PO (07:30)
[2024-11-18] MEDS: TYLENOL 1000 MG PO ×3 (07:30→20:24)
[2024-11-18] MEDS: VIBRAMYCIN 100 MG PO ×2 (07:30→20:24)
[2024-11-18] MEDS: VITAMIN D3 (cholecalciferol) 50 MCG PO (07:30)
--- NOTE | 2024-11-18 10:10 | W.PN.HOSP.TC ---
Today's Communication/Plan
-
Plan for discharge home tomorrow
Assessment / Plan
Assessment / Plan
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 Symptoms have been persistent over close to a week, was started on prednisone 20 mg by outside physician.
Upon arrival to the ED AFVSS, no hypoxemia but SpO2 borderline near 90%. Lab studies with CO2 32 though otherwise unremarkable. BNP low, troponin negative. ECG with low voltage in sinus arrhythmia though no ST deviation or T wave abnormality.
Chest x-ray without findings of acute processes in the chest though did mention stable findings of pulmonary fibrosis with flattened diaphragm consistent for COPD. In the ED was given DuoNebs x 3 and 10 mg IV dexamethasone.
#Acute hypoxemic and hypercapnic respiratory insufficiency
#Acute COPD exacerbation
RSV negative, flu/COVID pending
Currently requiring 2 L of oxygen, down from 4. She does not wear oxygen at home
Appreciate pulmonology input, currently on IV steroids, transition to prednisone tomorrow
Added doxycycline D2 for anti-inflammatory, continue bronchodilators
Check home oxygen eval, plan for discharge home tomorrow
Case management informed to help obtain nebulizer machine for patient
PT recommends SNF versus home PT
#Right upper lobe lung nodule suspicious for malignancy
Son and patient are aware of this diagnosis
Pulmonology recommends outpatient PET scan and follow-up
#Bereavement
passed on 11/10/2024
Provide emotional support
#Primary hypertension
-No known history of hypertensive systemic disease
-Home medications include metoprolol succinate, no first-line agents
-Blood pressure currently well-controlled, will monitor
#Hyperlipidemia
-No known history of ASCVD
-Home medications include simvastatin nightly
#H/O SVT
-Undifferentiated, not on anticoagulants
-Remains on metoprolol succinate for BP
-ECG here with sinus arrhythmia though heart rate WNL
#H/O right TKA
-Tylenol as needed for arthritic pain
DVT prophylaxis: Lovenox
CODE STATUS: Full code
Updated son on phone 11/17
Updated daughter on phone 11/18
Total time spent to see the patient on the floor, examine the patient, review data and lab results, discuss treatment plan with patient, nursing staff around 45 minutes.
Physical Exam
General: No acute distress
HEENT: Normocephalic, Atraumatic, EOMI, MMM
Respiratory: Diminished breath sounds in all lung reese
Cardiac: Normal S1/S2, Regular Rate and Rhythm
GI: Soft, Nontender, Nondistended, Normal Bowel Sounds
Extremities: No Clubbing, Cyanosis, or Edema
Neuro: Nonfocal/Grossly Intact
Psych: Calm, Cooperative
Derm: No Visible lesions
Anticipated Discharge: Within 24 hours
Subjective/Interval History
-
Date of Service: November 18, 2024
Patient reports that her breathing has improved since admission. No chest pain, no palpitations. No fever, no vomiting.
Objective Data
-
Vital Signs:
Vital Signs
Temp Pulse Resp BP Pulse Ox
98.3 F 62 18 127/55 98
11/18/24 07:25 11/18/24 07:25 11/18/24 07:25 11/18/24 07:25 11/18/24 07:25
I&O
11/17/24 11/18/24 11/19/24
06:59 06:59 06:59
Intake Total 100 / 100 600 / 600
Balance 100 / 100 600 / 600
--- NOTE | 2024-11-18 12:33 | CM ---
Pt seen bedside. Initial assessment completed. Admitted for complaint of dyspnea.
Pt reports she lives alone in a 2STH- no steps to enter. Pt's spouse recently as he recently was admitted and d/c on hospice.
Pt reports it is harder being in the home by herself as spouse helped her a lot (meals, getting her dressed, etc).
Pt uses cane to ambulate, has raised toilet seat in the home for additional support. Pt reports that she has been using her late spouse's oxygen at night and nebulizer a few times. Pt is currently on 2L O2, does not use O2 at home up until needing
it recently.
Pt denies SNF hx. Prev known to [facility]
Address, point of contact and insurance verified
PCP: Dr. Vega
Pharmacy: [facility]
PT/OT evaluated pt and is determining home PT vs SNF
Plan: CM will cont to follow hospital course
--- NOTE | 2024-11-18 13:16 | PN.CDI ---
CDI
- -
CDI:
Physician Documentation Request
Admit Date: 11/16/24 18:21
Dear Doctor Do,
Please review the following and provide your response in the progress notes.
Clinical Indicators:
- 11/17 Pulmonary 'Hypoxemic respiratory failure'
- 'In the emergency room patient found to be hypoxemic at 90%'
- 11/17 PN 'Acute hypoxemic and hypercapnic respiratory insufficiency'
- Documented VS 2-4L O2, SpO2 >88%
Please clarify the type and acuity that accurately represents the patient's respiratory status:
Acute hypoxic/hypercapnic respiratory failure
Chronic hypoxic respiratory failure
Acute respiratory insufficiency
Chronic respiratory failure
Hypoxia
Other
Additional information for Respiratory Failure:
Recognized criteria for Respiratory Failure (Source: [employer] Hospitalist Aug 2013)
ABGs: (1 or more) Symptoms Please indicate type if known
1. p)2 <60 or RA SPO2 <91% on RA 1. Tachypnea, SOB, dyspnea Hypoxic
2. pCO2 50 and pH <7.35 2. Use of accessory muscles Hypercapnic
3. pO2 decrease of pCO2 increase by 3. Pallor or cyanosis Hypoxic and Hypercapnic
10 mmHg from baseline if known 4. Anxiety or restlessness Unable to determine
5. Unable to speak in full sentences
Supplemental O2 of > 40% (5LPM) Intubation is not required
Use of terms such as suspected, likely, concern for, or probable (associated with a specific diagnosis that is being evaluated, monitored, or treated as if it exists) are acceptable and can be coded in the inpatient setting, when documented at the
time of discharge.
Thank you,
Tammy Hoyt RN
CDI Specialist
Please use your independent medical judgment in providing your response.
--- NOTE | 2024-11-18 14:11 | W.PN.PUL3 ---
Today's Communication / Plan
-
Transition to prednisone today
Continue nebulizer therapy Pulmicort/DuoNebs while in the hospital
Upon discharge will recommend nebulizer with DuoNebs/Pulmicort 2 times a day. Can decide in the outpatient setting if inhalers are necessary.
Patient states that she has a nebulizer at home.
Home oxygen assessment tomorrow-currently on 2 L hopefully can be weaned off.
Physical therapy-patient significantly debilitated
Will need outpatient evaluation for her lung nodule. She is aware of this.
Hopefully discharge planning next 24 hours
Assessment
-
84-year-old woman admitted with shortness of breath and coughing, found to be hypoxemic on admission. We were consulted for evaluation of possible exacerbation of COPD.
Hypoxemic respiratory failure
Negative cardiac biomarkers/proBNP 486
Negative COVID
Negative influenza
Negative RSV
Negative MRSA screening
Acute exertional asthma/COPD-likely tracheobronchitis. No evidence for pneumonia on CAT scan.
CT chest 11/17/2024: Spiculated noncalcified right upper lobe pulmonary nodule concerning for malignancy 1.6X 0.8 cm
No significant parenchymal airway disease. No hilar or mediastinal lymph nodes. No axillary lymphadenopathy.
There is centrilobular emphysema present.
Moderate atherosclerosis vascular disease.
Lung nodule incidental finding on CAT scan 11/17/2024
Conditions present prior admission:
History of asthma
Hypertension
Hyperlipidemia
History of SVT
History of right total knee replacement
Former smoker
Assessment and plan:
Clinical picture consistent with acute exacerbation of COPD-clinically improved.
Not significantly bronchospastic 11/17/2024 or 11/18/2024.
Suspect part of the symptom complex is due to grieving as well, patient lost her last Sunday. She also has been losing weight as the used to cook for her. Her appetite has decreased significantly.
She feels debilitated.
-
Admitted with shortness of breath and mild hypoxemia. Currently on 2 L supplemental oxygen.
Home oxygen assessment in the morning 11/19/2024 . Hopefully can be weaned off.
-
COPD-has emphysema on CAT scan. Does not take inhalers in the outpatient setting. Does not follow-up with pulmonary.
Former smoker
Continue nebulizer therapy with DuoNebs 4 times a day
Transition to prednisone 40 mg 11/18/2024. Decrease by 10 mg every 48 hours to off.
Continue Pulmicort nebulizer twice a day while in the hospital.
She may be discharged on nebulizer therapy with DuoNebs 3 times a day. We can reassess in the outpatient setting depending on pulmonary function testing if inhalers will be beneficial.
-
No evidence for acute infection at this point. Hold antibiotics.
Monitor for fevers/No leukocytosis.
-
Right upper lobe pulmonary nodule: Suspicious for malignancy given prior smoking history, age and emphysema on CAT scan.
No prior imaging to compare.
Discussed with patient
High risk situation
Recommend outpatient PET/CT.
Recommend outpatient pulmonary follow-up in the short-term.
-
Weight loss/deconditioning also playing a role.
Physical therapy/Occupational Therapy-evaluation ongoing. Home versus jail facility. She lives at home in a split-level.
She has been losing weight and likely also muscle mass due to decreased appetite-her on hospice on 11/14/2024.
-
Will follow-up
Hopefully discharge planning in the next 24 hours
Subjective Data
-
Date of Service:
Date of Service: November 18, 2024
Chief Complaint: Pulmonary Follow Up (Acute exacerbation of COPD/tracheobronchitis)
Subjective:
She offers no new complaints
Denies increased phlegm production
Continues to feel debilitated
Review of Systems
General: Fever (n)
Cardiopulmonary: Dyspnea and Dyspnea on Exertion
GI: Abdominal Pain (n) and Nausea (n)
Neuro: Headache (n)
Objective Data
Data Reviewed
Vital Signs / I&O / Oxygen:
Vital Signs
Temp Pulse Resp BP Pulse Ox
97.7 F 63 16 155/70 98
11/18/24 10:55 11/18/24 11:07 11/18/24 11:07 11/18/24 10:55 11/18/24 11:07
Intake and Output
11/17/24 11/18/24 11/19/24
06:59 06:59 06:59
Intake Total 100 / 100 600 / 600
Balance 100 / 100 600 / 600
SaO2 98
Nasal Cannula flow liters per 2
minute
Physical Exam
General: Comfortable
HEENT: Normocephalic
Cardiovascular: S1-S2 and Other (Bilateral edema on lower extremity)
Respiratory: Non-Labored Respirations
GI: Soft and Non Distended
Neurology: Awake and Alert
Labs/Micro/Reports
Lab Data
11/17/24 06:26
11/17/24 06:26
Microbiology
11/16/24 18:15 Nasal Swab Influenza Types A & B (BILL) - Final
Negative for Influenza A & B, NAAT
Negative results must be combined with clinical observations
and patient history.
Nucleic Acid Amplification test (NAAT)performed on the
[employer] platform.
11/16/24 14:57 Nasal Swab Respiratory Syncytial Virus Ag - Final
Negative for Respiratory Syncytial Virus.
A false negative result may be obtained with a specimen
collected early in the acute phase. If symptoms persist, a
new specimen should be tested.
[2024-11-18] MEDS: TOPROL XL 25 MG PO (17:00)
[2024-11-18] MEDS: SINGULAIR 10 MG PO (17:00)
[2024-11-18] MEDS: LOVENOX 40 MG SC (17:00)
[2024-11-18] MEDS: LIPITOR 20 MG PO (20:24)
[2024-11-18] MEDS: PEPCID 20 MG PO (20:24)
[2024-11-19 03:59] VITALS: BP 118/60
[2024-11-19] MEDS: PULMICORT 0.5 MG INH (07:20)
[2024-11-19] MEDS: DUONEB 3 ML INH ×2 (07:21→11:10)
[2024-11-19 07:31] VITALS: BP 125/62
--- NOTE | 2024-11-19 08:29 | W.PN.HOSP.TC ---
Today's Communication/Plan
-
Discharge home with home care
Assessment / Plan
Assessment / Plan
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 Symptoms have been persistent over close to a week, was started on prednisone 20 mg by outside physician.
Upon arrival to the ED AFVSS, no hypoxemia but SpO2 borderline near 90%. Lab studies with CO2 32 though otherwise unremarkable. BNP low, troponin negative. ECG with low voltage in sinus arrhythmia though no ST deviation or T wave abnormality.
Chest x-ray without findings of acute processes in the chest though did mention stable findings of pulmonary fibrosis with flattened diaphragm consistent for COPD. In the ED was given DuoNebs x 3 and 10 mg IV dexamethasone.
#Acute hypoxemic and hypercapnic respiratory insufficiency
#Acute COPD exacerbation
RSV negative, flu/COVID pending
Currently on RA, was on 2 L of oxygen, down from 4. She does not wear oxygen at home
Appreciate pulmonology input, status post IV steroids, currently on prednisone 40 mg daily
Added doxycycline D3 for anti-inflammatory, continue bronchodilators
Medically stable for discharge on prednisone taper, bronchodilators
Follow-up with PCP in 1 week and pulmonology in the office in 2-3 weeks
PT recommends SNF versus home PT
#Right upper lobe lung nodule suspicious for malignancy
Son and patient are aware of this diagnosis
Pulmonology recommends outpatient PET scan and follow-up
#Bereavement
passed on 11/10/2024
Provide emotional support
#Intermittent chest tightness
Troponin negative, EKG nonischemic
Suspect secondary to bereavement pain
#Primary hypertension
-No known history of hypertensive systemic disease
-Home medications include metoprolol succinate, no first-line agents
-Blood pressure currently well-controlled, will monitor
#Hyperlipidemia
-No known history of ASCVD
-Home medications include simvastatin nightly
#H/O SVT
-Undifferentiated, not on anticoagulants
-Remains on metoprolol succinate for BP
-ECG here with sinus arrhythmia though heart rate WNL
#H/O right TKA
-Tylenol as needed for arthritic pain
DVT prophylaxis: Lovenox
CODE STATUS: Full code
Updated son on phone 11/17
Updated daughter on phone 11/18
Updated daughter on phone 11/18
Physical Exam
General: No acute distress
HEENT: Normocephalic, Atraumatic, EOMI, MMM
Respiratory: Diminished breath sounds in all lung reese
Cardiac: Normal S1/S2, Regular Rate and Rhythm
GI: Soft, Nontender, Nondistended, Normal Bowel Sounds
Extremities: No Clubbing, Cyanosis, or Edema
Neuro: Nonfocal/Grossly Intact
Psych: Calm, Cooperative
Derm: No Visible lesions
Anticipated Discharge: Today
Subjective/Interval History
-
Date of Service: November 19, 2024
Breathing continues to improve. No fever, no vomiting.
Objective Data
-
Vital Signs:
Vital Signs
Temp Pulse Resp BP Pulse Ox
98.6 F 55 18 125/62 95
11/19/24 07:31 11/19/24 07:31 11/19/24 07:31 11/19/24 07:31 11/19/24 07:31
I&O
11/18/24 11/19/24 11/20/24
06:59 06:59 06:59
Intake Total 600 / 600 600 / 600
Balance 600 / 600 600 / 600
[2024-11-19] MEDS: DELTASONE 40 MG PO (09:15)
[2024-11-19] MEDS: VITAMIN D3 (cholecalciferol) 50 MCG PO (09:15)
[2024-11-19] MEDS: VIBRAMYCIN 100 MG PO (09:15)
[2024-11-19] MEDS: THERAGRAN 1 TABLET PO (09:15)
[2024-11-19] MEDS: TYLENOL 1000 MG PO (09:15)
[2024-11-19 10:30] LABS: Troponin I < 0.012 ng/ml
[2024-11-19 10:56] VITALS: BP 123/86
--- NOTE | 2024-11-19 12:44 | W.DCSUMMARY ---
Discharge Summary
Discharge Data
Date of Admission: 11/16/24
Date of Discharge: 11/19/24
-
Pending Results: No
Hospital Course
Discharge diagnosis:
Acute hypoxemic and hypercapnic respiratory insufficiency
Acute on chronic obstructive pulmonary disease exacerbation
Right upper lobe lung nodule suspicious for malignancy
Bereavement
Intermittent chest tightness
Essential hypertension
Hyperlipidemia
Consults: Pulmonology
Chest CT:
Spiculated noncalcified right upper lobe pulmonary nodule concerning for malignancy until proven otherwise. PET imaging recommended.
Findings suggesting emphysematous disease.
Moderate atherosclerotic vascular disease.
Hospital course:
84-year-old female with a past medical history of hypertension, hyperlipidemia, and former smoker who was admitted for acute hypoxemic and hypercapnic respiratory failure secondary to acute on chronic obstructive pulmonary disease exacerbation.
Patient was seen in conjunction with pulmonology. She was treated with IV steroids, bronchodilators. She initially required 2 L of oxygen, and was successfully weaned to room air.
Patient's chest CT shows a right upper lobe pulm nodule concerning for malignancy. Pulmonology recommends outpatient PET scan.
Patient recently lost her on 11/14/2024. She complained of intermittent chest tightness. EKG was nonischemic, troponin was negative. Suspect this is from bereavement.
Patient is medically stable and cleared by pulmonology for discharge. She will be discharged on a prednisone taper as well as bronchodilators. She needs to follow-up with her primary care doctor in 1 week, as well as pulmonology in the office in
2-3 weeks.
Disposition: Home with home care
Discharge planning: Required 45 min
Discharge Plan
-
Patient Disposition: Home with Home Care
Discharge Diagnosis/Procedures: Acute on chronic obstructive pulmonary disease exacerbation, hypoxia, right upper lobe lung nodule suspicious for malignancy, bereavement
Condition: Fair
Diet: Regular
Activity: As tolerated
Driving Restrictions: As prior to admission
Other Services: VN and PT
Referrals:
Haja Perkins MD [Active] - in two to three weeks
(may see BUMP GRADER OPERATOR.
PFT/6MWT)
hPill Vega MD [Family Provider] - in one week
Prescriptions:
New
doxycycline hyclate 100 mg Capsule
100 mg PO Q12 3 Days Qty: 6 0RF
ipratropium-albuterol 0.5 mg-3 mg(2.5 mg base)/3 mL Solution For Nebulization
3 ml inhalation R TID PRN (Reason: shortness of breath or wheezing) Qty: 90 0RF
budesonide 0.5 mg/2 mL Suspension For Nebulization
0.5 mg inhalation R BID Qty: 60 0RF
prednisone 10 mg Tablet
See Rx Instructions .ROUTE .COMPLEX Qty: 34 0RF
Rx Instructions:
Take By Mouth:
40 mg daily x4 days, 30 mg daily x3 days,
20 mg daily x3 days, 10 mg daily x3 days.
Continued
simvastatin 40 MG tablet
40 mg PO HS
montelukast 10 MG tablet
10 mg PO DAILY
metoprolol succinate 25 mg Tablet Extended Release 24 Hr
25 mg PO DAILY
cyanocobalamin (vitamin B-12) 1,000 mcg Tablet
1,000 mcg PO DAILY
therapeutic multivitamin Tablet
1 tab PO DAILY
aspirin 81 mg Tablet,Delayed Release (Dr/Ec)
81 mg PO DAILY
cholecalciferol (vitamin D3) [Vitamin D3] 25 mcg (1,000 unit) Tablet
25 mcg PO DAILY
Glucosamine Chondroitin 550-30-1 mg Capsule
1 cap PO DAILY
Changed
ibuprofen 200 mg Capsule
200 mg PO BID PRN (Reason: Pain) Qty: 0 0RF
Discontinued
prednisone 20 mg Tablet
40 mg PO UD
Rx Instructions:
taper dose 20mg for 3 days
Discharge Orders:
Discharge Patient (As Directed); Ordered 11/19/24
Ordered By: Hussain Chun
Discharge Date and Time
Discharge Date/Time: 11/19/24 15:17
Print Language: [id number]
--- NOTE | 2024-11-19 12:57 | CM ---
Pt medically stable for d/c. Pt will require DuoNebs/Pulmicort 2 times a day. Pt no longer on O2 and has no O2 needs
Spoke w/ pt bedside, pt confirmed she has a neb machine at home that was her late 's and some leftover medications.
Per pt, her daughter will transport her home
IMM reviewed, pt given copy, copy placed in chart
Updated daughter, [facility]
Pt declined HH
Plan: Home; no needs
[2024-11-19 14:40] VITALS: BP 118/62; PULSE 75; O2SAT 95
--- NOTE | 2024-11-19 14:50 | W.PN.PUL3 ---
Today's Communication / Plan
-
Oxygen has been weaned off
Prednisone taper, 40 mg and decrease by 10 mg every 48 hours to off
Upon discharge nebulizer at machine with DuoNebs 3 times a day.
Patient aware that lung nodule will need to be followed. That can be discussed in the outpatient setting
Information left in the chart for follow-up
Okay to discharge from the pulmonary perspective.
Sign off
Assessment
-
84-year-old woman admitted with shortness of breath and coughing, found to be hypoxemic on admission. We were consulted for evaluation of possible exacerbation of COPD.
Hypoxemic respiratory failure
Negative cardiac biomarkers/proBNP 486
Negative COVID
Negative influenza
Negative RSV
Negative MRSA screening
Acute exertional asthma/COPD-likely tracheobronchitis. No evidence for pneumonia on CAT scan.
CT chest 11/17/2024: Spiculated noncalcified right upper lobe pulmonary nodule concerning for malignancy 1.6X 0.8 cm
No significant parenchymal airway disease. No hilar or mediastinal lymph nodes. No axillary lymphadenopathy.
There is centrilobular emphysema present.
Moderate atherosclerosis vascular disease.
Lung nodule incidental finding on CAT scan 11/17/2024
Conditions present prior admission:
History of asthma
Hypertension
Hyperlipidemia
History of SVT
History of right total knee replacement
Former smoker
Assessment and plan:
Clinical picture consistent with acute exacerbation of COPD-clinically improved.
Not significantly bronchospastic 11/17/2024 or 11/18/2024.
Suspect part of the symptom complex is due to grieving as well, patient lost her last Sunday. She also has been losing weight as the used to cook for her. Her appetite has decreased significantly.
She feels debilitated.
-
Home oxygen assessment in the morning 11/19/2024 oxygen has been weaned off. No supplemental oxygen necessary.-
-
COPD-has emphysema on CAT scan. Does not take inhalers in the outpatient setting. Does not follow-up with pulmonary.
Former smoker
Continue nebulizer therapy with DuoNebs 4 times a day
Transition to prednisone 40 mg 11/18/2024. Decrease by 10 mg every 48 hours to off.
Continue Pulmicort nebulizer twice a day while in the hospital.
She may be discharged on nebulizer therapy with DuoNebs 3 times a day. We can reassess in the outpatient setting depending on pulmonary function testing if inhalers will be beneficial.
-
No evidence for acute infection at this point. Hold antibiotics.
Monitor for fevers/No leukocytosis.
-
Right upper lobe pulmonary nodule: Suspicious for malignancy given prior smoking history, age and emphysema on CAT scan.
No prior imaging to compare.
Discussed with patient
High risk situation
Recommend outpatient PET/CT.
Recommend outpatient pulmonary follow-up in the short-term.
-
Weight loss/deconditioning also playing a role.
Physical therapy/Occupational Therapy-evaluation ongoing. Home versus long term facility. She lives at home in a split-level.
She has been losing weight and likely also muscle mass due to decreased appetite-her on hospice on 11/14/2024.
-
Will follow-up
Okay to discharge from my perspective
No additional recommendation
Sign off
Subjective Data
-
Date of Service:
Date of Service: November 19, 2024
Chief Complaint: Pulmonary Follow Up (Acute exacerbation of COPD/tracheobronchitis)
Review of Systems
Cardiopulmonary: Dyspnea (improved)
GI: Abdominal Pain (n) and Nausea (n)
Objective Data
Data Reviewed
Vital Signs / I&O / Oxygen:
Vital Signs
Temp Pulse Resp BP Pulse Ox
98.1 F 80 16 123/86 93
11/19/24 10:56 11/19/24 11:11 11/19/24 11:11 11/19/24 10:56 11/19/24 10:56
Intake and Output
11/18/24 11/19/24 11/20/24
06:59 06:59 06:59
Intake Total 600 / 600 600 / 600
Balance 600 / 600 600 / 600
SaO2 93
Nasal Cannula flow liters per 2
minute
Physical Exam
General: Comfortable
HEENT: Normocephalic
Cardiovascular: S1-S2 and Other (Bilateral edema on lower extremity)
Respiratory: Non-Labored Respirations
GI: Soft and Non Distended
Neurology: Awake and Alert
Labs/Micro/Reports
Lab Data
11/17/24 06:26
11/17/24 06:26
Microbiology
11/16/24 18:15 Nasal Swab Influenza Types A & B (BILL) - Final
Negative for Influenza A & B, NAAT
Negative results must be combined with clinical observations
and patient history.
Nucleic Acid Amplification test (NAAT)performed on the
Exam18 ID NOW platform.
11/16/24 14:57 Nasal Swab Respiratory Syncytial Virus Ag - Final
Negative for Respiratory Syncytial Virus.
A false negative result may be obtained with a specimen
collected early in the acute phase. If symptoms persist, a
new specimen should be tested.
[2024-11-19 15:03] VITALS: BP 125/75
== END 2024-11-19 15:17 | disposition home health service (06) | DRG 191 ==
LOC: 4 WEST ACU 18:21
PROVIDERS: Emergency Medicine; ADMITTING PHYSICIAN Internal Medicine; ATTENDING PHYSICIAN Family Medicine; EMERGENCY PHYSICIAN Emergency Medicine; FAMILY PHYSICIAN Family Medicine; OTHER PHYSICIAN Internal Medicine Critical Care Medicine
DX: J44.1 Chronic obstructive pulmonary disease with (acute) exacerbation (principal); C34.11 Malignant neoplasm of upper lobe, right bronchus or lung; J43.2 Centrilobular emphysema; E78.00 Pure hypercholesterolemia, unspecified; I10 Essential (primary) hypertension; R09.02 Hypoxemia; R06.89 Other abnormalities of breathing; R13.12 Dysphagia, oropharyngeal phase; Z96.651 Presence of right artificial knee joint; Z87.891 Personal history of nicotine dependence; Z79.899 Other long term (current) drug therapy; Z63.4 Disappearance and death of family member; Z11.52 Encounter for screening for COVID-19
CPT/HCPCS: 71046; 71250; 80048; 80053; 82805; 83735; 83880; 84484; 85025; 87502; 87807; 87811; 93005; 94640; 97163; 97167; 97530; 99285

== ENCOUNTER → 2024-12-19 08:15 | Outpatient (REF) | payer OTHER, SELFPAY | LOC: PET 08:15 | PROVIDERS: ATTENDING PHYSICIAN Nurse Practitioner Adult Health | DX: R91.1 Solitary pulmonary nodule (principal) | CPT/HCPCS: 78815; A9552 ==

== ENCOUNTER → 2024-12-29 11:10 | Outpatient (REF) | payer OTHER, SELFPAY | LOC: HWRAD 11:10 | PROVIDERS: ATTENDING PHYSICIAN Internal Medicine Critical Care Medicine; FAMILY PHYSICIAN Family Medicine | DX: R91.8 Other nonspecific abnormal finding of lung field (principal) | CPT/HCPCS: 71250 ==

== ENCOUNTER → 2025-01-02 09:58 | Outpatient (REF) | payer OTHER, SELFPAY | LOC: WDC 09:58 | PROVIDERS: ATTENDING PHYSICIAN Family Medicine | DX: N63.10 Unspecified lump in the right breast, unspecified quadrant (principal) | CPT/HCPCS: 76642; 77062; 77066 ==

== ENCOUNTER 2025-01-05 06:35 | Day surgery (SDC) | payer OTHER, SELFPAY ==
[2024-12-29 11:25] LABS: INR 0.97; PT 13.2 Sec (11.4-14.6)
[2024-12-29 11:26] LABS: APTT 28.6 Sec (23.4-35.0)
[2024-12-29 14:18] VITALS: BMI 21.4
[2025-01-05] VITALS (15 sets, daily range): BP systolic 88–135; BP diastolic 51–90; BMI 21.4
[2025-01-05] MEDS: DUONEB 3 ML INH (13:34)
== END 2025-01-05 15:15 | disposition home or self-care (01) ==
LOC: GI 06:35
PROVIDERS: ATTENDING PHYSICIAN Internal Medicine Critical Care Medicine; FAMILY PHYSICIAN Family Medicine
DX: C34.11 Malignant neoplasm of upper lobe, right bronchus or lung (principal); J43.9 Emphysema, unspecified; R91.1 Solitary pulmonary nodule; R06.02 Shortness of breath; R91.8 Other nonspecific abnormal finding of lung field; J44.9 Chronic obstructive pulmonary disease, unspecified; J98.09 Other diseases of bronchus, not elsewhere classified
CPT/HCPCS: 31629; 31628; 31624; 31623; 31627; 31654; 88172; 88173; 88305; 36415; 71045; 76000; 85610; 85730; 87070; 87102; 87116; 87205; 88112; 88333; 88334; 88341; 88342; 94640; C1887

== ENCOUNTER → 2025-01-29 07:51 | Outpatient (REF) | payer OTHER, SELFPAY | LOC: WDC 07:51 | PROVIDERS: ATTENDING PHYSICIAN Family Medicine | DX: N63.41 Unspecified lump in right breast, subareolar (principal) | CPT/HCPCS: 88305; 19083; 19084; 88341; 88342; 88360; A4648 ==

== ENCOUNTER → 2025-04-02 15:46 | Outpatient (REF) | payer OTHER, SELFPAY | LOC: RCS 15:46 | PROVIDERS: ATTENDING PHYSICIAN Internal Medicine Cardiovascular Disease; FAMILY PHYSICIAN Family Medicine | DX: I47.29 Other ventricular tachycardia (principal); I35.8 Other nonrheumatic aortic valve disorders; Z17.0 Estrogen receptor positive status [ER+]; C50.411 Malignant neoplasm of upper-outer quadrant of right female breast | CPT/HCPCS: 93306; 93356 ==

== ENCOUNTER 2025-08-31 11:23 | Inpatient (IN) | payer OTHER, SELFPAY ==
[2025-08-30] VITALS (11 sets, daily range): BP systolic 99–137; BP diastolic 54–80; BMI 21.7
--- NOTE | 2025-08-30 11:53 | EDRN ---
Clark KLINE in room w/pt at this time.
[2025-08-30] MEDS: OMNIPAQUE 50 ML PO (12:33)
[2025-08-30] MEDS: DILAUDID 0.25 MG IV ×2 (12:34→13:15)
[2025-08-30 12:39] LABS: Hematocrit 41.9 % (37.0-47.0); Hemoglobin 13.1 g/dL (12.0-16.0); Mean Corp Hgb Conc. 31.3 g/dL (33.0-37.0); Mean Corpuscular Volume 81.7 fL (81.0-99.0); Nucleated Red Blood Cells % 0 %; Platelet Count 402 10^3/uL (130-400); Red Cell Dist. Width 16.3 % (11.5-14.5)
[2025-08-30 12:52] LABS: ALT (SGPT) 13 U/L (0-35); AST (SGOT) 21 U/L (14-36); Albumin 4.0 g/dl (3.5-5.0); Alkaline Phosphatase 84 U/L (38-126); Blood Urea Nitrogen 14 mg/dl (7-17); Calcium 10.1 mg/dl (8.4-10.2); Carbon Dioxide 30 mmol/L (22-30); Chloride 102 mmol/L (98-107); Estimated Creatinine Clearance 47 ml/min; Glucose 107 mg/dl (70-99); Lipase 61 U/L (23-300); Potassium 4.0 mmol/L (3.5-5.1); Sodium 136 mmol/L (135-145); Total Protein 6.8 g/dl (6.3-8.2); eGFR > 60.00
--- NOTE | 2025-08-30 13:19 | EDRN ---
Clark KLINE in attempting to reduce LLQ hernia.
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
--- NOTE | 2025-08-30 16:51 | EDRN ---
Clark KLINE in room w/ pt.
--- NOTE | 2025-08-30 17:00 | EDRN ---
Dr. Durant resident w/ hospitalist group in room w/ pt at this time.
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
--- NOTE | 2025-08-30 17:48 | EDRN ---
Pt OOB to commode w/ assist of 1 and had medium BM at that time.
[2025-08-30] MEDS: DUONEB 3 ML INH ×2 (18:06→19:20)
--- NOTE | 2025-08-30 18:10 | EDRN ---
Pt missed her midday neb so this RN asked for a now order for her duoneb and pt is having it now. POX was 89-91% on room air and had been higher earlier.
[2025-08-30] MEDS: NSS 1000 IV (18:21)
[2025-08-30] MEDS: PRAVACHOL 80 MG PO (21:14)
[2025-08-30] MEDS: ULTRAM 50 MG PO (21:15)
[2025-08-31] MEDS: TYLENOL 650 MG PO ×2 (00:55→13:48)
[2025-08-31] MEDS: NSS 1000 IV (06:15)
[2025-08-31] MEDS: DUONEB 3 ML INH ×3 (07:40→19:15)
[2025-08-31 07:42] VITALS: BP 128/87
[2025-08-31 07:58] LABS: Hematocrit 38.6 % (37.0-47.0); Hemoglobin 11.8 g/dL (12.0-16.0); Mean Corp Hgb Conc. 30.6 g/dL (33.0-37.0); Mean Corpuscular Volume 85.8 fL (81.0-99.0); Platelet Count 353 10^3/uL (130-400); Red Cell Dist. Width 16.8 % (11.5-14.5)
[2025-08-31] MEDS: VITAMIN D3 (cholecalciferol) 25 MCG PO (07:58)
[2025-08-31] MEDS: FEMARA 2.5 MG PO (07:58)
[2025-08-31] MEDS: ULTRAM 50 MG PO ×3 (07:58→23:05)
[2025-08-31] MEDS: ASPIR LOW (ENTERIC COATED) 81 MG PO (07:58)
[2025-08-31] MEDS: SINGULAIR 10 MG PO (07:59)
[2025-08-31] MEDS: TOPROL XL 25 MG PO (07:59)
[2025-08-31 08:33] LABS: Blood Urea Nitrogen 10 mg/dl (7-17); Calcium 9.3 mg/dl (8.4-10.2); Carbon Dioxide 27 mmol/L (22-30); Chloride 104 mmol/L (98-107); Estimated Creatinine Clearance 47 ml/min; Glucose 93 mg/dl (70-99); Potassium 4.2 mmol/L (3.5-5.1); Sodium 134 mmol/L (135-145); eGFR > 60.00
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
--- NOTE | 2025-08-31 12:10 | CM ---
Patient seen at bedside
IA completed
DX: incarcerated hernia
Surgery consulted
OR tentative tomorrow
Patent currently living with her daughter in split level home, 0 AMALIA, 9 steps bed/bath
PLOF: Independent uses a cane
DME: [employer] walk[employer]
has had [facility] past, [facility] in past
PT/OT eval
PCP: Reagan Doshi
Pharmacy: [facility]
PLAN: OR tomorrow, await PT/OT evals, CM to continue to follow for discharge planning/needs
[2025-08-31 14:42] VITALS: BP 130/90; PULSE 84
[2025-08-31 16:00] VITALS: BP 125/75
[2025-08-31] MEDS: PRAVACHOL 80 MG PO (17:45)
[2025-08-31 23:00] VITALS: BP 126/69
[2025-09-01 06:36] LABS: Hematocrit 39.4 % (37.0-47.0); Hemoglobin 11.8 g/dL (12.0-16.0); Mean Corp Hgb Conc. 29.9 g/dL (33.0-37.0); Mean Corpuscular Volume 84.5 fL (81.0-99.0); Platelet Count 357 10^3/uL (130-400); Red Cell Dist. Width 17.1 % (11.5-14.5)
[2025-09-01 06:59] LABS: Blood Urea Nitrogen 8 mg/dl (7-17); Calcium 9.8 mg/dl (8.4-10.2); Carbon Dioxide 30 mmol/L (22-30); Chloride 105 mmol/L (98-107); Estimated Creatinine Clearance 47 ml/min; Glucose 83 mg/dl (70-99); Potassium 4.5 mmol/L (3.5-5.1); Sodium 136 mmol/L (135-145); eGFR > 60.00
[2025-09-01] MEDS: DUONEB 3 ML INH ×3 (07:15→19:08)
[2025-09-01 07:30] VITALS: BP 123/73
[2025-09-01] MEDS: ASPIR LOW (ENTERIC COATED) PO (08:50)
[2025-09-01] MEDS: VITAMIN D3 (cholecalciferol) PO (08:51)
[2025-09-01] MEDS: SINGULAIR PO (08:51)
[2025-09-01] MEDS: ULTRAM PO (08:51)
[2025-09-01] MEDS: TOPROL XL PO (08:51)
[2025-09-01] MEDS: FEMARA PO (08:51)
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
[2025-09-01 10:31] VITALS: BP 163/79; PULSE 100; O2SAT 93
[2025-09-01 10:36] VITALS: BP 163/79; PULSE 98; O2SAT 92
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
--- NOTE | 2025-09-01 15:51 | CM ---
Addendum entered by Nikki Merrill 09/10/25 16:48:
Patient for possible transfer sunday. CM sent updated clinicals to [facility] and [facility] pending confirmation of bed availability.
Original Note:
Patient seen at bedside this am on . patient was for surgery today. Patient now for regular diet and surgery to determine medical treatment plan per chart review. CM will continue to follow for discharge planning needs.
Plan; pending medical treatment plan
[2025-09-01 16:00] VITALS: BP 138/76
[2025-09-01] MEDS: PRAVACHOL 80 MG PO (17:27)
[2025-09-01] MEDS: ULTRAM 50 MG PO ×2 (17:27→21:08)
[2025-09-01 23:00] VITALS: BP 131/73
[2025-09-02 05:46] LABS: Hematocrit 39.1 % (37.0-47.0); Hemoglobin 12.1 g/dL (12.0-16.0); Mean Corp Hgb Conc. 30.9 g/dL (33.0-37.0); Mean Corpuscular Volume 85.4 fL (81.0-99.0); Platelet Count 356 10^3/uL (130-400); Red Cell Dist. Width 17.1 % (11.5-14.5)
[2025-09-02 06:14] LABS: Blood Urea Nitrogen 12 mg/dl (7-17); Calcium 9.7 mg/dl (8.4-10.2); Carbon Dioxide 29 mmol/L (22-30); Chloride 105 mmol/L (98-107); Estimated Creatinine Clearance 47 ml/min; Glucose 94 mg/dl (70-99); Potassium 4.1 mmol/L (3.5-5.1); Sodium 139 mmol/L (135-145); eGFR > 60.00
[2025-09-02] MEDS: DUONEB 3 ML INH ×3 (07:49→19:07)
[2025-09-02 08:25] VITALS: BP 140/81
--- NOTE | 2025-09-02 08:56 | W.PN.UPDATE ---
Update Note
Progress Note Update
Added onto OR schedule for today. informed consent obtained. Robotic VIHR planned.
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
[2025-09-02] MEDS: FEMARA PO (09:36)
[2025-09-02] MEDS: ASPIR LOW (ENTERIC COATED) PO (09:36)
[2025-09-02] MEDS: SINGULAIR PO (09:37)
[2025-09-02] MEDS: TOPROL XL PO (09:39)
[2025-09-02] MEDS: ULTRAM PO (09:39)
[2025-09-02] MEDS: VITAMIN D3 (cholecalciferol) PO (09:40)
[2025-09-02] MEDS: DILAUDID 0.25 MG IV (09:42)
--- NOTE | 2025-09-02 13:10 | W.PN.UPDATE ---
Addendum entered and electronically signed by Serafin Lan MD 09/02/25 13:21:
Pulm risk strat will also be obtained. PT already following. Anticipate will need SNF upon DC. CM notified.
Original Note:
Update Note
Progress Note Update
Limited OR availability today, case delayed. Sunday there is a schedule opening and she is added on for Sunday for robotic VIHR. NPO@AL 09/03 ordered. In the meantime will obtain Card risk strat and PT eval, and allow
additional time for nutritional prehab
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
[2025-09-02] MEDS: ULTRAM 50 MG PO ×2 (15:46→21:50)
[2025-09-02 16:00] VITALS: BP 120/65
--- NOTE | 2025-09-02 16:06 | CON.PUL ---
Consultation
Consultation Request
Date/Time Consultation Requested: 09/02/2025
Date/Time Consultation Performed: 09/02/2025
Medical History
-
Chief Complaint: Abdominal pain
History of Present Illness:
Patient is a very pleasant 85-year-old female with known history of COPD and right upper lobe non-small cell adenocarcinoma who presented to the hospital due to pain at the site of hernia. Patient reported pain of 9 out of 10. Workup was
suggestive of possible incarceration of hernia. Patient had manual reduction performed with alleviation of pain symptoms. Patient is scheduled for definitive surgical repair coming Sunday, 09/04. Pulmonary consultation service was requested for
optimization of the patient from pulmonary standpoint.
Past Medical History
Past Medical History: Reports Cancer (Breast cancer, lung cancer s/p radiation), COPD, HTN and Hypercholesterolemia
Past Surgical History: Reports Appendectomy and Orthopedic (Right TKA)
Social History
Tobacco: Former Smoker
Alcohol: None
Drug: None
Living: With Family
Employment: Retired
Family History
Family History: Not pertinent
Allergies / Home Medications
Allergies / Home Medications
Allergies
Allergy/AdvReac Type Severity Reaction Status Date / Time
No Known Allergies Allergy Verified 08/30/25 11:10
Home Medications
�Medication �Instructions �Recorded �Confirmed �Last Taken �Type
montelukast 10 mg tablet 10 mg PO DAILY asthma 03/22/20 08/30/25 08/30/25 History
metoprolol succinate 25 mg 25 mg PO DAILY Blood Pressure 11/15/23 08/30/25 08/30/25 History
tablet,extended release 24 hr
aspirin 81 mg tablet,delayed 81 mg PO DAILY Blood Clot 11/16/24 08/30/25 08/30/25 History
release Prevention/Tx
cholecalciferol (vitamin D3) 25 25 mcg PO DAILY Supplement 11/16/24 08/30/25 08/30/25 History
mcg (1,000 unit) tablet (Vitamin
D3)
glucosamine sulf dipot 1 cap PO DAILY Supplement 11/16/24 08/30/25 08/30/25 History
chlr,msm,chond 550 mg-C 30 mg-lolita
1 mg capsule (Glucosamine
Chondroitin)
acetaminophen 325 mg tablet 650 mg PO Q6HPRN PRN mild pain 08/30/25 08/30/25 08/29/25 History
(Tylenol)
ipratropium 0.5 mg-albuterol 3 mg 3 ml inhalation R TID shortness of 08/30/25 08/30/25 08/30/25 History
(2.5 mg base)/3 mL nebulization breath or wheezing
soln
letrozole 2.5 mg tablet 2.5 mg PO DAILY Hormonal Agent 08/30/25 08/30/25 08/30/25 History
polyethylene glycol 3350 17 gram 17 g PO DAILYPRN PRN constipation 08/30/25 08/30/25 08/30/25 History
oral powder packet (Miralax)
pravastatin 80 mg tablet 80 mg PO HS High Cholesterol 08/30/25 08/30/25 08/29/25 History
tramadol 50 mg tablet 50 mg PO TID moderate pain 08/30/25 08/30/25 08/30/25 History
Review of Systems
-
Hematologic/Lymphatic: Other (All 14 systems reviewed and negative except as stated above in the history of present illness.)
Vitals / Labs / Diagnostic Testing
Vital Signs
Temp Pulse Resp BP Pulse Ox
97.9 F 68 16 140/81 92
09/02/25 08:25 09/02/25 08:25 09/02/25 08:25 09/02/25 08:25 09/02/25 08:25
Lab Data
09/02/25 05:33
09/02/25 05:33
Diagnostic Testing:
Physical Exam
-
HEENT: Normocephalic
Cardiovascular: S1/S2
Respiratory: Clear and Non-Labored Respirations
GI: Soft
Neurology: Awake and Alert
Skin: Warm
General: Comfortable
Assessment
-
#1. COPD/Asthma overlap, mild
- PFT in 12/2024 with 103% of predicted FEV1 along with FEV1/FVC of 61, diffusion capacity corrected for alveolar volume at 85% of predicted. Mild COPD with mild diffusion capacity impairment.
- Continue montelukast, continue DuoNeb 3 times daily scheduled.
- No current wheezing on exam, no indication for steroid therapy
- Patient saturating well on room air.
- Currently symptoms are well-controlled, continue current nebulized therapy. No additional workup or interventions needed from pulmonary standpoint, prior to surgery.
#2. 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
- PD-L1 77%, positive K-anusha and ERBB2 mutation
- S/p radiation therapy treatment, outpatient follow-up with pulmonary and radiation oncology service
#3. H/o Smoking.
- Half pack per day smoking history for about 30 years, quit 15 years ago
- Resume outpatient follow-up with pulmonary clinic
Other medical diagnoses:
-Abdominal hernia, partially reducible, concern for incarceration. Surgery service on case, definitive surgical repair scheduled for 09/04
- Breast cancer, diagnosed with biopsy in 01/2025
- Hypertension, hyperlipidemia
Resume outpatient follow-up with Dr. Martínez at [facility] pulmonary clinic postdischarge
Total time spent on this consultation/encounter _65___ minutes which includes review of history, physical exam, medications, laboratory data, personal review of imaging, extensive review of outpatient records, discussion with care team and
respiratory therapy.
Data:
CT A/P 08/2025: Fat and bowel containing left flank ventral hernia with findings suggesting incarceration/strangulation. No evidence of intestinal obstruction.
Large amount of fecal matter throughout the colon. Progressed
Mild diverticulosis. Stable
Calcified splenic artery aneurysm. Stable
Gallstone. Stable
Moderate L2 compression fracture. New from 11/2024
ION bronchoscopy 12/2024: RUL nodule, biopsy positive for non-small cell adenocarcinoma, PD-L1 77%, + KRAS, + ERBB2
PFT 12/2024: FEV1 1.3 L, 103% of predicted, FVC 123% of predicted, FEV1/FVC of 61. Total lung capacity 107% of predicted. RV/TLC of 51. DLCO corrected for alveolar volume at 85% of predicted. Conclusion mild obstructive airway disease with
mildly decreased diffusion capacity.
[2025-09-02] MEDS: PRAVACHOL 80 MG PO (17:44)
[2025-09-02 23:00] VITALS: BP 108/59
[2025-09-03 06:21] LABS: Hematocrit 39.9 % (37.0-47.0); Hemoglobin 12.2 g/dL (12.0-16.0); Mean Corp Hgb Conc. 30.6 g/dL (33.0-37.0); Mean Corpuscular Volume 86.2 fL (81.0-99.0); Platelet Count 363 10^3/uL (130-400); Red Cell Dist. Width 17.3 % (11.5-14.5)
[2025-09-03 06:44] LABS: Blood Urea Nitrogen 13 mg/dl (7-17); Calcium 9.4 mg/dl (8.4-10.2); Carbon Dioxide 29 mmol/L (22-30); Chloride 103 mmol/L (98-107); Estimated Creatinine Clearance 47 ml/min; Glucose 100 mg/dl (70-99); Potassium 4.0 mmol/L (3.5-5.1); Sodium 137 mmol/L (135-145); eGFR > 60.00
[2025-09-03 07:22] VITALS: BP 119/65
[2025-09-03] MEDS: DUONEB 3 ML INH ×2 (07:24→11:35)
[2025-09-03] MEDS: ASPIR LOW (ENTERIC COATED) 81 MG PO (08:30)
[2025-09-03] MEDS: FEMARA 2.5 MG PO (08:30)
[2025-09-03] MEDS: SINGULAIR 10 MG PO (08:30)
[2025-09-03] MEDS: TOPROL XL 25 MG PO (08:30)
[2025-09-03] MEDS: VITAMIN D3 (cholecalciferol) 25 MCG PO (08:30)
[2025-09-03] MEDS: ULTRAM 50 MG PO ×3 (08:32→21:32)
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
[2025-09-03 10:32] VITALS: BP 115/64; PULSE 77; O2SAT 95
[2025-09-03] MEDS: TYLENOL 650 MG PO ×3 (11:36→21:32)
--- NOTE | 2025-09-03 13:37 | W.PN.PUL3 ---
Today's Communication / Plan
-
- No additional workup needed or recommendations from pulmonary standpoint in view of anticipated surgery
- Outpatient follow-up with [facility] pulmonary clinic, with Dr. Martínez
- Pulmonary team will sign off, please call as needed
Assessment
-
Patient is a very pleasant 85-year-old female with known history of COPD and right upper lobe non-small cell adenocarcinoma who presented to the hospital due to pain at the site of hernia. Patient reported pain of 9 out of 10. Workup was
suggestive of possible incarceration of hernia. Patient had manual reduction performed with alleviation of pain symptoms. Patient is scheduled for definitive surgical repair coming Sunday, 09/04. Pulmonary consultation service was requested for
optimization of the patient from pulmonary standpoint.
#1. COPD/Asthma overlap, mild
- PFT in 12/2024 with 103% of predicted FEV1 along with FEV1/FVC of 61, diffusion capacity corrected for alveolar volume at 85% of predicted. Mild COPD with mild diffusion capacity impairment.
- Continue montelukast, continue DuoNeb 3 times daily scheduled.
- No current wheezing on exam, no indication for steroid therapy
- Patient saturating well on room air.
- Currently symptoms are well-controlled, continue current nebulized therapy. No additional workup or interventions needed from pulmonary standpoint, prior to surgery.
#2. 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
- PD-L1 77%, positive K-anusha and ERBB2 mutation
- S/p radiation therapy treatment, outpatient follow-up with pulmonary and radiation oncology service
#3. H/o Smoking.
- Half pack per day smoking history for about 30 years, quit 15 years ago
- Resume outpatient follow-up with pulmonary clinic
Other medical diagnoses:
-Abdominal hernia, partially reducible, concern for incarceration. Surgery service on case, definitive surgical repair scheduled for 09/04
- Breast cancer, diagnosed with biopsy in 01/2025
- Hypertension, hyperlipidemia
Resume outpatient follow-up with Dr. Martínez at [facility] pulmonary clinic postdischarge
Total time spent on this consultation/encounter _38___ minutes which includes review of history, physical exam, medications, laboratory data, personal review of imaging, extensive review of outpatient records, discussion with care team and
respiratory therapy.
Data:
CT A/P 08/2025: Fat and bowel containing left flank ventral hernia with findings suggesting incarceration/strangulation. No evidence of intestinal obstruction.
Large amount of fecal matter throughout the colon. Progressed
Mild diverticulosis. Stable
Calcified splenic artery aneurysm. Stable
Gallstone. Stable
Moderate L2 compression fracture. New from 11/2024
ION bronchoscopy 12/2024: RUL nodule, biopsy positive for non-small cell adenocarcinoma, PD-L1 77%, + KRAS, + ERBB2
PFT 12/2024: FEV1 1.3 L, 103% of predicted, FVC 123% of predicted, FEV1/FVC of 61. Total lung capacity 107% of predicted. RV/TLC of 51. DLCO corrected for alveolar volume at 85% of predicted. Conclusion mild obstructive airway disease with
mildly decreased diffusion capacity.
Subjective Data
-
Date of Service:
Date of Service: September 03, 2025
Subjective:
Patient comfortably sitting in chair in no acute distress.
Review of Systems
Genitourinary: Other (All 14 systems reviewed and negative except as stated above in the history of present illness.)
Objective Data
Data Reviewed
Vital Signs / I&O / Oxygen:
Vital Signs
Temp Pulse Resp BP Pulse Ox
97.6 F 88 14 119/65 91
09/03/25 07:22 09/03/25 11:37 09/03/25 11:37 09/03/25 08:30 09/03/25 07:30
Intake and Output
09/02/25 09/03/25 09/04/25
06:59 06:59 06:59
Intake Total 1080 / 1080 720 / 720
Balance 1080 / 1080 720 / 720
SaO2 91
Physical Exam
General: Comfortable
HEENT: Normocephalic
Cardiovascular: S1-S2
Respiratory: Clear and Non-Labored Respirations
GI: Soft
Neurology: Awake and Alert
Skin: Warm
Labs/Micro/Reports
Lab Data
09/03/25 05:40
09/03/25 05:40
[2025-09-03 15:02] VITALS: BP 111/63
[2025-09-03 16:02] VITALS: BP 114/57; PULSE 92; O2SAT 98
--- NOTE | 2025-09-03 16:24 | CM ---
CM met with Sheron to complete IA. She lives with her daughter in an apartment with 3 entry steps.
Pt has a commode, walker, cane and a device to help her with dressing.
SNF is recommended by therapy, however pt is having a surgical procedure tomorrow, so will reassess post-op.
Hx of SNF at [facility]; pt would like a different facility if SNF is chosen. Pt prefers to go home with home care if appropriate.
Plan: CM to follow to coordinate discharge needs; SNF vs. VN
[2025-09-03] MEDS: PRAVACHOL 80 MG PO (17:35)
[2025-09-03 23:00] VITALS: BP 132/63
[2025-09-03 23:25] VITALS: BP 132/63
[2025-09-04] VITALS (9 sets, daily range): BP systolic 106–133; BP diastolic 56–73
[2025-09-04] MEDS: TYLENOL PO ×2 (03:04→10:05)
[2025-09-04 05:51] LABS: Hematocrit 42.3 % (37.0-47.0); Hemoglobin 12.7 g/dL (12.0-16.0); Mean Corp Hgb Conc. 30.0 g/dL (33.0-37.0); Mean Corpuscular Volume 86.0 fL (81.0-99.0); Platelet Count 365 10^3/uL (130-400); Red Cell Dist. Width 17.3 % (11.5-14.5)
[2025-09-04] MEDS: DUONEB 3 ML INH ×3 (06:02→19:21)
[2025-09-04] MEDS: DUONEB INH (06:31)
[2025-09-04 06:37] LABS: Blood Urea Nitrogen 14 mg/dl (7-17); Calcium 9.4 mg/dl (8.4-10.2); Carbon Dioxide 31 mmol/L (22-30); Chloride 100 mmol/L (98-107); Estimated Creatinine Clearance 47 ml/min; Glucose 89 mg/dl (70-99); Potassium 4.3 mmol/L (3.5-5.1); Sodium 137 mmol/L (135-145); eGFR > 60.00
[2025-09-04] MEDS: VITAMIN D3 (cholecalciferol) PO (07:10)
[2025-09-04] MEDS: SINGULAIR PO (07:10)
[2025-09-04] MEDS: ASPIR LOW (ENTERIC COATED) PO (07:10)
[2025-09-04] MEDS: ULTRAM PO (07:10)
[2025-09-04] MEDS: FEMARA PO (07:10)
[2025-09-04] MEDS: TOPROL XL PO (07:10)
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
--- NOTE | 2025-09-04 11:58 | OR.RPT ---
Operative Report
Operative Report
Primary Surgeon: Riky
Assisting: Latrice WEISS
Pre-op Diagnosis: Ventral incisional hernia, incarcerated
Post-op Diagnosis: Same
Procedure Performed: Robot assisted laparoscopic repair of incarcerated ventral incisional hernia (rTAPP)
Anesthesia Type: GETA + TAP block
Specimen / Cultures: None
Estimated Blood Loss: 20cc
Complications: None immediate
Operative Findings: 4cm x 3cm defect with incarcerated colon and omentum, 14cm bard soft mesh
DOS: 09/04/25
Indications:� This 85F developed a symptomatic incarcerated left lower quadrant ventral incisional hernia. Robot assisted laparoscopic repair was planned.
Description of procedure:� The patient was taken to the operating room and positioned into supine position. The patient�s abdomen was prepped and draped in standard sterile fashion. A time-out was completed verifying correct patient, procedure,
site, positioning, and implants and special equipment prior to beginning this procedure.� A stab incision was made in the left upper quadrant, a Veress needle was inserted and proper position was confirmed by aspiration and saline drop test.
Following this, pneumoperitoneum was created with insufflation of carbon dioxide to 12 mmHg. Then a 8mm robotic trocar was inserted at the right mid clavicular line just below the costal margin. The laparoscope was inserted and no injuries were
identified in the area. Under direct visualization, two 8mm trocars were placed off midline to the left of midline at the same level and another in the left upper quadrant.
Attention was turned to the defect. Colon and omentum was manually reduced, taking care to protect the colon. An expected serosal injury occurred during the reduction and this was repaired with 3-0 vicryl lembert sutures at the conclusion of the
procedure (after mesh handling was complete). The peritoneum was incised several cm superior to the defect and a peritoneal flap was developed in transverse and caudad directions using blunt and sharp dissection and judicious electrocautery. The
defect measured as above. The defect was closed with 0 PDS stratafix suture. Mesh was passed into the abdomen and centered on the defect and then placed against the underside of the abdominal wall and secured in place with 2-0 vicryl sutures at all
four corners as well as under the defect. The flap was closed over the mesh and secured with 2-0 monocryl stratafix suture. A large rent in the flap at the site of the defect was closed with 2-0 monocryl stratafix suture. A transversus abdominis
plane block was then performed at the medial aspect of the plane only, under laparoscopic vision with marcaine/decadron.
After ensuring adequate hemostasis, the trocars were removed and the pneumoperitoneum allowed to escape. The trocar incisions were closed at the skin level using 4-0 monocryl and topical skin adhesive. All counts were correct. The patient tolerated
the procedure well and was taken to the postanesthesia care unit in stable condition.
The assistance of Latrice WEISS was required due to the complexity of the procedure. During the procedure she assisted with retraction, resection, and closure of the wound.
[2025-09-04] MEDS: DILAUDID 0.25 MG IV (12:17)
[2025-09-04] MEDS: MORPHINE SULFATE 1 MG IV ×2 (12:35→12:40)
--- NOTE | 2025-09-04 13:06 | CM ---
Addendum entered by Katt Rowley 09/04/25 16:19:
SNF referrals sent to [facility], [facility] and [facility] for consideration of SNF transfer.
Pt would prefer to return home with home care if able.
CM will continue to follow.
Original Note:
Pt to OR today for incarcerated ventral hernia. SNF is recommended when medically cleared. Pt would prefer to return home with home care at discharge if able.
SNF referrals submitted in the event Sheron is not able to return home with home care services.
Plan: CM to follow to coordinate discharge needs; SNF vs. VN
--- NOTE | 2025-09-04 13:32 | CM ---
Pt returned to the unit post-op. Currently sleeping and no family visiting at this time.
Will need PT/OT evaluations when patient is able to participate to determine discharge plan. Patient has previously advised she would prefer to go home with home care if able; SNF referrals to be sent if SNF is deemed to be more appropriate.
Plan: CM to contact pt's daughter to discuss discharge planning options, or speak with patient when she is able to discuss options.
--- NOTE | 2025-09-04 14:12 | PTCARENOTE ---
RN received pt from PACU after hernia repair. Pt AAO x3. Pt came back on 2L oxygen via NC, which pt was not on before. Pt has no complaints of pain around surgery site, however does complain of back pain which is chronic. x4 incision sites clean and
intact. No drainage noted. Sites approximated and held with surgical glue. VS taken. SPO2 at 97-99%. Pt weaned down to 1L oxygen via NC. Will reassessed oxygen level and attempt to wean pt off oxygen. Pt has no further complaints or requests at this
time.
[2025-09-04] MEDS: TYLENOL 650 MG PO ×2 (15:11→21:30)
[2025-09-04] MEDS: ULTRAM 50 MG PO ×2 (15:11→21:30)
--- NOTE | 2025-09-04 15:12 | PTOTSP ---
Reviewed chart and noted pt went to OR today for hernia repair under general anesthesia. Will need new orders for PT and OT when stable to resume therapy activity.
--- NOTE | 2025-09-04 16:22 | CM ---
CM following for possible discharge to SNF; pt prefers to return home if able.
Referrals sent to [facility], [facility] and [facility] for consideration.
CM to f/u tomorrow re: SNF referrals.
[2025-09-04] MEDS: PRAVACHOL 80 MG PO (17:10)
[2025-09-05] MEDS: TYLENOL PO (04:20)
[2025-09-05 07:00] VITALS: BP 121/64
[2025-09-05] MEDS: DUONEB 3 ML INH ×3 (07:12→17:56)
[2025-09-05] MEDS: FEMARA 2.5 MG PO (07:37)
[2025-09-05] MEDS: ASPIR LOW (ENTERIC COATED) 81 MG PO (07:38)
[2025-09-05] MEDS: SINGULAIR 10 MG PO (07:39)
[2025-09-05] MEDS: TOPROL XL 25 MG PO (07:39)
[2025-09-05] MEDS: ULTRAM 50 MG PO ×3 (07:39→21:28)
[2025-09-05] MEDS: VITAMIN D3 (cholecalciferol) 25 MCG PO (07:48)
[2025-09-05 08:01] LABS: Hematocrit 39.2 % (37.0-47.0); Hemoglobin 11.9 g/dL (12.0-16.0); Mean Corp Hgb Conc. 30.4 g/dL (33.0-37.0); Mean Corpuscular Volume 87.5 fL (81.0-99.0); Platelet Count 365 10^3/uL (130-400); Red Cell Dist. Width 17.3 % (11.5-14.5)
[2025-09-05 08:52] LABS: Blood Urea Nitrogen 13 mg/dl (7-17); Calcium 9.1 mg/dl (8.4-10.2); Carbon Dioxide 29 mmol/L (22-30); Chloride 101 mmol/L (98-107); Estimated Creatinine Clearance 47 ml/min; Glucose 97 mg/dl (70-99); Potassium 4.6 mmol/L (3.5-5.1); Sodium 136 mmol/L (135-145); eGFR > 60.00
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
[2025-09-05] MEDS: TYLENOL 650 MG PO ×3 (10:18→21:28)
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
[2025-09-05] MEDS: ROXICODONE 5 MG PO (13:08)
[2025-09-05 15:00] VITALS: BP 131/61
[2025-09-05] MEDS: DILAUDID 0.25 MG IV ×2 (15:28→21:29)
[2025-09-05] MEDS: PRAVACHOL 80 MG PO (17:33)
[2025-09-05] MEDS: LOVENOX 30 MG SC (17:33)
[2025-09-05] MEDS: ZOFRAN 4 MG IV (21:38)
[2025-09-05 23:24] VITALS: BP 124/71
[2025-09-06] VITALS (9 sets, daily range): BP systolic 90–167; BP diastolic 61–109; BMI 21.4
[2025-09-06] MEDS: DILAUDID 0.25 MG IV (03:10)
[2025-09-06] MEDS: COMPAZINE 5 MG IV (03:30)
[2025-09-06] MEDS: TYLENOL PO ×3 (03:40→20:22)
[2025-09-06 06:53] LABS: Hematocrit 43.0 % (37.0-47.0); Hemoglobin 13.3 g/dL (12.0-16.0); Mean Corp Hgb Conc. 30.9 g/dL (33.0-37.0); Mean Corpuscular Volume 85.1 fL (81.0-99.0); Platelet Count 422 10^3/uL (130-400); Red Cell Dist. Width 17.8 % (11.5-14.5)
[2025-09-06] MEDS: DUONEB 3 ML INH ×3 (07:05→18:06)
[2025-09-06] MEDS: ULTRAM 50 MG PO (09:01)
[2025-09-06] MEDS: SINGULAIR 10 MG PO (09:01)
[2025-09-06] MEDS: ASPIR LOW (ENTERIC COATED) 81 MG PO (09:02)
[2025-09-06] MEDS: VITAMIN D3 (cholecalciferol) 25 MCG PO (09:02)
[2025-09-06] MEDS: TOPROL XL 25 MG PO (09:02)
[2025-09-06] MEDS: TYLENOL 650 MG PO (09:02)
[2025-09-06] MEDS: FEMARA 2.5 MG PO (09:02)
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
[2025-09-06] MEDS: ZOFRAN 4 MG IV (10:37)
[2025-09-06] MEDS: OMNIPAQUE 50 ML PO (10:38)
--- NOTE | 2025-09-06 15:04 | W.SUR.PREOP ---
Pre-Operative Surgical Note
-
I have examined this patient prior to the performance of the scheduled procedure.
The patient's condition is unchanged from the time of the current History and
Physical and the patient is able to undergo the scheduled procedure.
--- NOTE | 2025-09-06 16:30 | W.IMMPOSTOP ---
Surgical Immed Post Op Note
-
Primary Surgeon: Mike
Assisting Surgeon: TU Aragon
Pre-op Diagnosis: Ventral incisional hernia
Post-op Diagnosis: Ventral incisional hernia
Procedure Performed: Exploratory laparotomy, open repair of ventral incisional hernia
Anesthesia Type: General
Specimen / Cultures: None
Estimated Blood Loss: 7 cc
Complications: None
Operative Findings:
1. Loop small bowel herniating through fascial defect at RLQ port site
2. Bowel viable, no resection
3. Fascia closed in multiple layers with 2-0 Vicryl for peritoneum and 0 PDS for anterior sheath
[2025-09-06] MEDS: MORPHINE SULFATE 1 MG IV (17:16)
--- NOTE | 2025-09-06 18:01 | PTCARENOTE ---
Pt from Pacu AAOx3 no complaint of pain. Pleasant . Pt has R samie NG at 50 low int suction, draining brown fluid. Pt used bed dudley and urinated a moderate amt. Or sit dressing CDI belly firm .
[2025-09-06] MEDS: ULTRAM PO ×2 (18:14→20:22)
[2025-09-06] MEDS: PRAVACHOL PO (18:15)
[2025-09-06] MEDS: LOVENOX 30 MG SC (18:24)
--- NOTE | 2025-09-06 18:28 | PTCARENOTE ---
Pt now on 2l at 96%
[2025-09-07] VITALS (14 sets, daily range): BP systolic 123–174; BP diastolic 69–89; PULSE 72–130
--- NOTE | 2025-09-07 00:01 | PTCARENOTE ---
assumed care of patient. pt is AAOx3, drowsy but easily arousable, able to make needs known. NG tube in place to LIWS. NG tube irrigated per order. no complaints of pain. dressing to right abdomen CDI. on 2L NC 97%. tried to wean off, but patient's
oxygen dropped to 88%. VSS. care ongoing.
[2025-09-07] MEDS: TYLENOL PO ×2 (03:16→20:36)
[2025-09-07 05:00] LABS: Hematocrit 41.0 % (37.0-47.0); Hemoglobin 13.2 g/dL (12.0-16.0); Mean Corp Hgb Conc. 32.2 g/dL (33.0-37.0); Mean Corpuscular Volume 82.8 fL (81.0-99.0); Platelet Count 374 10^3/uL (130-400); Red Cell Dist. Width 17.5 % (11.5-14.5)
[2025-09-07 05:35] LABS: Blood Urea Nitrogen 11 mg/dl (7-17); Calcium 9.5 mg/dl (8.4-10.2); Carbon Dioxide 29 mmol/L (22-30); Chloride 100 mmol/L (98-107); Estimated Creatinine Clearance 47 ml/min; Glucose 104 mg/dl (70-99); Potassium 4.5 mmol/L (3.5-5.1); Sodium 138 mmol/L (135-145); eGFR > 60.00
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
[2025-09-07] MEDS: DUONEB 3 ML INH ×3 (08:06→18:22)
[2025-09-07] MEDS: TOPROL XL 25 MG PO (08:47)
[2025-09-07] MEDS: FEMARA 2.5 MG PO (08:47)
[2025-09-07] MEDS: VITAMIN D3 (cholecalciferol) 25 MCG PO (08:47)
[2025-09-07] MEDS: ASPIR LOW (ENTERIC COATED) 81 MG PO (08:48)
[2025-09-07] MEDS: ULTRAM 50 MG PO (08:48)
[2025-09-07] MEDS: SINGULAIR 10 MG PO (08:48)
--- NOTE | 2025-09-07 09:07 | PTCARENOTE ---
PT AAOx3 pleasant and cooperative. L nare NGT in place draing brown fluid , pt co of pain. given meds and suction off for 1 HR. Belly is firm not distended Dressing CDI
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
[2025-09-07] MEDS: TYLENOL 650 MG PO ×2 (11:02→17:36)
[2025-09-07] MEDS: NORMOSOL-R/PLASMALYTE-A 1000 IV (11:23)
[2025-09-07] MEDS: PROTONIX IV 40 MG IV (11:23)
[2025-09-07] MEDS: ZOSYN 50 IV ×2 (11:24→17:36)
--- NOTE | 2025-09-07 16:18 | CM ---
Patient seen at bedside with physicians on IMU. Patient s/p surgery 09/06 and plan is for placement at SNF when medically appropriate. Patient would prefer going home if possible but acknowledged need for further supports. CM will continue to follow
for discharge planning needs.
Plan; pending medical treatment plan SNF placement. Patient will need auth.
[2025-09-07] MEDS: LOVENOX 30 MG SC (17:35)
[2025-09-07] MEDS: ROXICODONE 5 MG PO (17:36)
[2025-09-07] MEDS: PRAVACHOL 80 MG PO (18:04)
[2025-09-07] MEDS: DILAUDID 0.25 MG IV (21:38)
--- NOTE | 2025-09-07 22:52 | PTCARENOTE ---
assumed care of patient. pt is AAOx3, [place]. able to make needs known. VSS. m/s level of care. pt transferred to 2123 with all belongings without issues. report given to ROS.
[2025-09-08] MEDS: NORMOSOL-R/PLASMALYTE-A 1000 IV (00:04)
[2025-09-08] MEDS: ZOSYN 50 IV ×2 (00:15→05:32)
[2025-09-08] MEDS: TYLENOL PO ×4 (03:30→20:55)
[2025-09-08 06:07] LABS: Hematocrit 36.4 % (37.0-47.0); Hemoglobin 11.1 g/dL (12.0-16.0); Mean Corp Hgb Conc. 30.5 g/dL (33.0-37.0); Mean Corpuscular Volume 85.4 fL (81.0-99.0); Platelet Count 362 10^3/uL (130-400); Red Cell Dist. Width 17.6 % (11.5-14.5)
[2025-09-08 06:31] LABS: Blood Urea Nitrogen 11 mg/dl (7-17); Calcium 8.7 mg/dl (8.4-10.2); Carbon Dioxide 33 mmol/L (22-30); Chloride 99 mmol/L (98-107); Estimated Creatinine Clearance 47 ml/min; Glucose 81 mg/dl (70-99); Potassium 3.3 mmol/L (3.5-5.1); Sodium 135 mmol/L (135-145); eGFR > 60.00
--- NOTE | 2025-09-08 06:43 | PTCARENOTE ---
Pt received from IMU at 2250. Pt pulled over to bed-endorses weakness and some fatigue. NGT remains in place per order. IVF maintained. VSS at this time. Pt c/o of some pain, but declines analgesia at this time. Bed in lowest position and locked,
call valdez within reach, pt has no further concerns at this time.
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
[2025-09-08 07:20] VITALS: BP 141/66
[2025-09-08] MEDS: DUONEB 3 ML INH ×3 (07:27→19:30)
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
[2025-09-08] MEDS: NSS (PRESERVATIVE FREE) 10 ML IV (08:17)
[2025-09-08] MEDS: KCL 270 MEQ IV (08:17)
[2025-09-08] MEDS: PROTONIX IV 40 MG IV (08:17)
[2025-09-08] MEDS: FEMARA 2.5 MG PO (08:18)
[2025-09-08] MEDS: SINGULAIR 10 MG PO (08:18)
[2025-09-08] MEDS: ASPIR LOW (ENTERIC COATED) 81 MG PO (08:18)
[2025-09-08] MEDS: TOPROL XL 25 MG PO (08:18)
[2025-09-08 12:10] LABS: Hematocrit 39.7 % (37.0-47.0); Hemoglobin 11.8 g/dL (12.0-16.0)
[2025-09-08] MEDS: DILAUDID 0.25 MG IV ×2 (12:20→23:27)
[2025-09-08] MEDS: NORMOSOL-R/PLASMALYTE-A IV (13:44)
[2025-09-08] MEDS: KCL 1015 MEQ IV (13:59)
--- NOTE | 2025-09-08 14:09 | PTCARENOTE ---
prn dilaudid given this afternoon for 6/10 pain. pt states abd pain is better somewhat than yesterday but still no BM. passed two episodes of flatus while RN was in the room.Abd binder in room at this time.
[2025-09-08] MEDS: HURRICAINE SPRAY 1 APPLIC TOPICAL (14:34)
[2025-09-08 15:10] VITALS: BP 141/72
--- NOTE | 2025-09-08 15:30 | PTCARENOTE ---
NGT clamped per surgeon order at 1445. see worklist. pt received prn hurricane spray for sore throat. see DEC.
--- NOTE | 2025-09-08 16:15 | CM ---
Patient seen at bedside in 2 north with physicians. Patient plan continues to be SNF, will send updated clinicals when closer to discharge. CM will continue to follow for discharge planning needs.
Plan; snf when appropriate
[2025-09-08 16:50] VITALS: BP 163/83; PULSE 79; O2SAT 93
[2025-09-08] MEDS: PRAVACHOL 80 MG PO (18:28)
[2025-09-08] MEDS: LOVENOX 30 MG SC (18:28)
[2025-09-08 23:18] VITALS: BP 131/63
[2025-09-09] MEDS: KCL 1015 MEQ IV ×2 (03:33→17:23)
[2025-09-09] MEDS: TYLENOL PO ×4 (03:34→23:06)
[2025-09-09] MEDS: HURRICAINE SPRAY 1 APPLIC TOPICAL ×3 (05:44→17:13)
[2025-09-09 07:15] VITALS: BP 151/69
[2025-09-09 07:16] LABS: Hematocrit 36.1 % (37.0-47.0); Hemoglobin 11.0 g/dL (12.0-16.0); Mean Corp Hgb Conc. 30.5 g/dL (33.0-37.0); Mean Corpuscular Volume 86.4 fL (81.0-99.0); Platelet Count 349 10^3/uL (130-400); Red Cell Dist. Width 17.7 % (11.5-14.5)
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
[2025-09-09 07:43] LABS: Blood Urea Nitrogen 8 mg/dl (7-17); Calcium 8.8 mg/dl (8.4-10.2); Carbon Dioxide 29 mmol/L (22-30); Chloride 101 mmol/L (98-107); Estimated Creatinine Clearance 47 ml/min; Glucose 112 mg/dl (70-99); Potassium 3.8 mmol/L (3.5-5.1); Sodium 133 mmol/L (135-145); eGFR > 60.00
[2025-09-09] MEDS: DUONEB 3 ML INH ×3 (07:52→19:55)
[2025-09-09] MEDS: PROTONIX IV 40 MG IV (08:30)
[2025-09-09] MEDS: DILAUDID 0.5 MG IV ×2 (08:30→14:28)
[2025-09-09] MEDS: NSS (PRESERVATIVE FREE) 10 ML IV (08:30)
--- NOTE | 2025-09-09 09:00 | PTCARENOTE ---
Addendum entered by Heidi Palacio RN 09/09/25 15:42:
Patient to ordered PE study, results communicated with pulm. POX improved to 96% on 15L nonrebreather, patient OOB to chair continuing to deny trouble breathing. O2 weaned to 6L NC, cont POX placed on patient with tele per order, 94% on 6L, NSR with
occ PVCs. MD and resident made aware. This RN communicated with pulm, goal POX 88% per pulm - see order. No new orders at this time. Patient tolerating clear liquid diet.
Original Note:
Patient 87% on RA this AM when vitals taken by tech, states no complaints, 2L NC applied with improvement to 93%, patient OOB to chair with PT and denies trouble breathing, c/o lower back pain rated 6-7/10 - medicated with PRN 0.5mg IV Dilaudid -
see MAR. Patient refusing AM PO medications, stated to this RN she has sore throat from NGT and had trouble swallowing ordered pills yesterday. MD and resident made aware, NGT okay to use for meds per surgery, NGT flushed with residual of 10ml, at
50 cm marking per prior charting, okay to use per surgery. PO meds crushed as able and administered through NGT.
Patient for ordered Abd xray this AM, POX checked prior to transport 87% on 6L NC, patient continues to deny any trouble breathing, lungs clear B/L, MD and resident made aware, patient to ordered scan and NGT pulled by surgeon at bedside after abd
xray. Surgeon made aware of new oxygen requirement, abd binder removed from patient per surgery, no new orders at this time.
This RN clarified with MD goal POX of 92% per order, patient with no improvement on 6L after scheduled resp treatment. MD and resident, respiratory therapy at bedside, patient placed on 15L nonrebreather per MD, POX 80-83% on Dinamap, patient
continuing to state no trouble breathing. CT PE study and pulm consult ordered per MD.
[2025-09-09] MEDS: ASPIR LOW (ENTERIC COATED) PO (09:13)
[2025-09-09] MEDS: TOPROL XL PO (09:13)
[2025-09-09] MEDS: FEMARA 2.5 MG PO (09:14)
[2025-09-09] MEDS: SINGULAIR 10 MG PO (09:14)
[2025-09-09 09:17] VITALS: BP 133/71; PULSE 72; O2SAT 93
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
[2025-09-09 13:00] VITALS: BP 145/72
[2025-09-09 13:29] VITALS: BMI 21.4
[2025-09-09 16:15] VITALS: BP 130/63; PULSE 86; O2SAT 96
[2025-09-09] MEDS: LOVENOX 30 MG SC (17:04)
[2025-09-09] MEDS: PRAVACHOL 80 MG PO (17:04)
--- NOTE | 2025-09-09 18:08 | PTCARENOTE ---
Addendum entered by Heidi Palacio RN 09/09/25 19:30:
IMU transfer order in place per resident. O2 therapy order with goal of POX > 90% ordered per MD. ABG results communicated with MD, resident, pulm, and respiratory. POX continuing to be 84-85% on fingers and B/L ears with 15L nonrebreather but
patient continues to state no complaints or trouble breathing. Per MD, cancel transfer and keep on floor and check POX if symptomatic. Patient and family updated on plan of care.
Original Note:
Patient OOB to chair, POX 94-96% on 4L NC, patient stating no complaints, weaned down to 2L NC. POX dropped to 85% on 2L, patient continuing to state no complaints. O2 increased back to 4L NC, POX dropping on monitor to 79-80% on 4L. Resp at
bedside, patient placed on 15L nonrebreather, POX 84-85%. Patient denies any trouble breathing. MD, resident and pulmonology made aware, ABG ordered per MD, resp at bedside.
[2025-09-09 18:28] LABS: PCO2 38 mmHg (32-35)
[2025-09-09 18:31] LABS: B.E. 3.9 mmol/L; HCO3 27.7 mmol/L (21-28); O2 Saturation % 97.2 % (94-98); PO2 305 mmHg (83-108)
[2025-09-09 19:12] VITALS: BP 128/67
[2025-09-09 23:11] VITALS: BP 136/71
[2025-09-10] VITALS (7 sets, daily range): BP systolic 96–138; BP diastolic 55–76; PULSE 79; O2SAT 92
[2025-09-10] MEDS: DILAUDID 0.25 MG IV ×3 (03:08→17:27)
[2025-09-10] MEDS: TYLENOL PO ×2 (03:12→09:02)
[2025-09-10] MEDS: KCL 1015 MEQ IV ×2 (06:18→20:03)
[2025-09-10 06:21] LABS: Hematocrit 34.5 % (37.0-47.0); Hemoglobin 10.5 g/dL (12.0-16.0); Mean Corp Hgb Conc. 30.4 g/dL (33.0-37.0); Mean Corpuscular Volume 83.9 fL (81.0-99.0); Platelet Count 331 10^3/uL (130-400); Red Cell Dist. Width 17.6 % (11.5-14.5)
[2025-09-10 06:35] LABS: Blood Urea Nitrogen 4 mg/dl (7-17); Calcium 8.6 mg/dl (8.4-10.2); Carbon Dioxide 30 mmol/L (22-30); Chloride 105 mmol/L (98-107); Estimated Creatinine Clearance 47 ml/min; Glucose 112 mg/dl (70-99); Potassium 3.9 mmol/L (3.5-5.1); Sodium 133 mmol/L (135-145); eGFR > 60.00
[2025-09-10] MEDS: DUONEB 3 ML INH (07:15)
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
[2025-09-10] MEDS: PROTONIX IV 40 MG IV (08:17)
[2025-09-10] MEDS: NSS (PRESERVATIVE FREE) 10 ML IV (08:17)
[2025-09-10] MEDS: TOPROL XL 25 MG PO (08:22)
[2025-09-10] MEDS: SINGULAIR 10 MG PO (08:22)
[2025-09-10] MEDS: ASPIR LOW (ENTERIC COATED) 81 MG PO (08:22)
[2025-09-10] MEDS: FEMARA 2.5 MG PO (08:22)
--- NOTE | 2025-09-10 08:30 | PTOTSP ---
Speech Language Pathology
Pt seen for clinical bedside swallow evaluation. Known to MODEL TECHNICIAN department from outpatient VSE completed in April 2024 with functional oropharyngeal swallow and recommendations for regular solids/thin liquids. Concern for esophageal dysphagia with
suggestion for GI. Pt reported eating softer items at baseline given food sticking in chest at times. She does not think she has a GI doctor.
This date, P.O. trials of ice chips and thin liquids provided via cup and straw. Also seen with crushed meds in tsp of puree. Adequate oral phase with limited consistencies trialed. No overt signs of aspiration. Complained of globus sensation
mid chest with meds. Liquid wash improved this. Unable to trial regular solids at this time, but do not have concerns given current function and recent VSE completion.
Recommend:
(1) Regular solids/thin liquids once cleared by surgery
(2) Esophageal precautions
(3) Meds crushed in puree (this is baseline for larger pills)
(4) Consider outpatient GI as appropriate
(5) MODEL TECHNICIAN to sign off. Please reconsult as indicated
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
--- NOTE | 2025-09-10 09:30 | W.PN.PUL.V3 ---
Today's Communication / Plan
-
Wean oxygen
Continue nebulizers as needed
Pulmonary status stable-ABG does not correlate with bedside pulse oximetry-clinically patient without signs of significant hypoxemia-asymptomatic
Assessment
-
Patient is a very pleasant 85-year-old female with known history of COPD and right upper lobe non-small cell adenocarcinoma who presented to the hospital due to pain at the site of hernia. Patient reported pain of 9 out of 10. Workup was
suggestive of possible incarceration of hernia. Patient had manual reduction performed with alleviation of pain symptoms. Patient is scheduled for definitive surgical repair coming 09/04/25. Pulmonary consultation service was requested
for optimization of the patient from pulmonary standpoint-subsequently pulmonary signed off and was asked to return with pulse oximetry in the 80s-asymptomatic 09/10/2025
#1. COPD/Asthma overlap, hesj-34-yohm-year smoking history-quit many years ago
- PFT in 12/2024 with 103% of predicted FEV1 along with FEV1/FVC of 61, diffusion capacity corrected for alveolar volume at 85% of predicted. Mild COPD with mild diffusion capacity impairment.
- Continue montelukast, continue DuoNeb 3 times daily scheduled.
- No current wheezing on exam, no indication for steroid therapy
Pulse oximetry does not correlate with ABG-38/305/7.47 on nonrebreather (pulse oximetry 82%)-not consistent with methemoglobinemia with pulse ox is usually falsely elevated and blood appears 'chocolate brown'
- Currently symptoms are well-controlled, continue current nebulized therapy.
#2. 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
- PD-L1 77%, positive K-anusha and ERBB2 mutation
- S/p radiation therapy treatment, outpatient follow-up with pulmonary and radiation oncology service
#3. H/o Smoking.
- Half pack per day smoking history for about 30 years, quit 15 years ago
- Resume outpatient follow-up with pulmonary clinic
Other medical diagnoses:
-Abdominal hernia, partially reducible, concern for incarceration. Surgery service on case, definitive surgical repair scheduled for 09/04
- Breast cancer, diagnosed with biopsy in 01/2025
- Hypertension, hyperlipidemia
Reviewed with nursing, primary team as well as surgery
Last saw Dr. Green 08/17/2025-would recommend follow-up after hospitalization
Data:
CT A/P 08/2025: Fat and bowel containing left flank ventral hernia with findings suggesting incarceration/strangulation. No evidence of intestinal obstruction.
Large amount of fecal matter throughout the colon. Progressed
Mild diverticulosis. Stable
Calcified splenic artery aneurysm. Stable
Gallstone. Stable
Moderate L2 compression fracture. New from 11/2024
ION bronchoscopy 12/2024: RUL nodule, biopsy positive for non-small cell adenocarcinoma, PD-L1 77%, + KRAS, + ERBB2
PFT 12/2024: FEV1 1.3 L, 103% of predicted, FVC 123% of predicted, FEV1/FVC of 61. Total lung capacity 107% of predicted. RV/TLC of 51. DLCO corrected for alveolar volume at 85% of predicted. Conclusion mild obstructive airway disease with
mildly decreased diffusion capacity.
Subjective Data
-
Date of Service:
Date of Service: September 10, 2025
Chief Complaint: Pulmonary Follow Up and Dyspnea Follow Up
Subjective:
Patient with asymptomatic low pulse oximetry, no complaints of shortness of breath, chest pain, chest congestion, productive cough,
Review of Systems
General: Other (Per HPI)
Objective Data
Data Reviewed
Vital Signs / I&O:
Vital Signs
Temp Pulse Resp BP Pulse Ox
98.2 F 73 16 123/68 100
09/10/25 07:00 09/10/25 08:22 09/10/25 07:18 09/10/25 08:22 09/10/25 09:06
Intake and Output
09/09/25 09/10/25 09/11/25
06:59 06:59 06:59
Intake Total 1740 / 1740 600 / 600 240 / 240
Balance 1740 / 1740 600 / 600 240 / 240
SaO2: 100
Nasal Cannula flow liters per minute: 3
Physical Exam
General: Respiratory Distress and Comfortable
HEENT: Normocephalic
Cardiovascular: Regular Rhythm
Respiratory: Clear, Wheeze (n), Crackles (n), Rhonchi (n), Non-Labored Respirations, Accessory Resp Muscle Use and Stridor (n)
GI: Soft and Non Distended
Neurology: Awake, Alert and No Motor Deficits
Skin: Warm, Good Color, Cyanosis (n), Jaundice (n) and Rash (n )
Labs/Micro/Reports
Lab Data
09/10/25 06:00
09/10/25 06:00
Laboratory Results
09/09/25
18:23
pH 7.47 H
pCO2 38 H
pO2 305 H
HCO3 27.7
O2 Delivery Level
--- NOTE | 2025-09-10 09:37 | CM ---
Updated clinicals sent to SNF options. Patient not yet ready for transfer to SNF pending functional status assessments. CM will continue to follow for discharge planning needs.
Plan; SNF when medically appropriate, will need auth prior to transfer.
[2025-09-10] MEDS: ROXICODONE 5 MG PO (11:37)
--- NOTE | 2025-09-10 13:06 | PTCARENOTE ---
Addendum entered by Heidi Palacio RN 09/10/25 16:31:
POX 92-93% on 3L this afternoon, patient OOB to chair with PT/OT and states no concerns at this time. Per pulm, okay to keep POX >85% if patient asymptomatic, wean O2 as atul.
Original Note:
Patient's POX 85-88% on 4L per resp, patient sitting up in bed stating no complaints or trouble breathing. MD made aware of POX results, no new orders at this time.
[2025-09-10] MEDS: TYLENOL 650 MG PO ×2 (15:29→21:28)
[2025-09-10] MEDS: ULTRAM 50 MG PO ×2 (15:29→21:26)
[2025-09-10] MEDS: LOVENOX 30 MG SC (17:19)
[2025-09-10] MEDS: PRAVACHOL 80 MG PO (17:19)
--- NOTE | 2025-09-10 18:07 | PTCARENOTE ---
Patient c/o 03/31 abd pain throughout, states cramping sensation that started this evening. Diet advanced this AM to full liquids per surgery, patient states she has not had anything recently other than water and ice chips, had pudding and ensure
earlier in AM and tolerated at that time. +bowel sounds, 2 loose brown BMs throughout this shift. Abdomen round, tender to palpation, lap sites intact. Patient medicated with 0.25mg IV dilaudid - see MAR. Surgery made aware and at bedside, CT scan
to be ordered per surgeon.
--- NOTE | 2025-09-10 18:12 | W.PN.SURGUPD ---
Surgical Update
Surgical Update
Obtained regarding sudden onset of lower abdominal pain 6 out of 10. I went to go see the patient and examine her myself. She endorses some belching but no significant nausea. She states the pain came out of the blue and it is in her lower
quadrants. She has been passing flatus and had bowel movements earlier today. She is tender particularly at her right lower quadrant incision site though it is unclear how much this is changed from this morning. She is also tender in the left
lower quadrant as well. She is mildly distended. Of note she had a CT chest with IV contrast to rule out PE yesterday, though serum creatinine remains normal.
Will get a stat CT abdomen pelvis without contrast to evaluate for any recurrent occult hernia.
Patient and patient's son who was in the room both agreeable to plan of care.
All questions answered
[2025-09-11] VITALS (7 sets, daily range): BP systolic 105–132; BP diastolic 51–66; PULSE 77; O2SAT 95
[2025-09-11] MEDS: TYLENOL PO ×2 (03:54→15:33)
[2025-09-11 07:09] LABS: Hematocrit 35.1 % (37.0-47.0); Hemoglobin 10.4 g/dL (12.0-16.0); Mean Corp Hgb Conc. 29.6 g/dL (33.0-37.0); Mean Corpuscular Volume 86.7 fL (81.0-99.0); Platelet Count 341 10^3/uL (130-400); Red Cell Dist. Width 17.7 % (11.5-14.5)
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
[2025-09-11 07:51] LABS: Blood Urea Nitrogen 6 mg/dl (7-17); Calcium 8.6 mg/dl (8.4-10.2); Carbon Dioxide 29 mmol/L (22-30); Chloride 104 mmol/L (98-107); Estimated Creatinine Clearance 47 ml/min; Glucose 92 mg/dl (70-99); Potassium 4.6 mmol/L (3.5-5.1); Sodium 135 mmol/L (135-145); eGFR > 60.00
[2025-09-11] MEDS: NSS (PRESERVATIVE FREE) 10 ML IV (09:12)
[2025-09-11] MEDS: PROTONIX IV 40 MG IV (09:12)
[2025-09-11] MEDS: ULTRAM 50 MG PO ×3 (09:13→21:04)
[2025-09-11] MEDS: TOPROL XL 25 MG PO (09:14)
[2025-09-11] MEDS: FEMARA 2.5 MG PO (09:14)
[2025-09-11] MEDS: SINGULAIR 10 MG PO (09:14)
[2025-09-11] MEDS: ASPIR LOW (ENTERIC COATED) 81 MG PO (09:14)
--- NOTE | 2025-09-11 09:17 | W.PN.PUL.V3 ---
Today's Communication / Plan
-
Oxygen as needed-attempt to wean
Assess discharge supplemental oxygen needs-pulse ox does not correlate with ABG
Continue nebulizers
Surgery following-CT chest and abdomen noted
Mild infiltrate noted on CT chest-currently afebrile and no leukocytosis-observe off antibiotics
Pulmonary will sign off-please call with questions
Assessment
-
Patient is a very pleasant 85-year-old female with known history of COPD and right upper lobe non-small cell adenocarcinoma who presented to the hospital due to pain at the site of hernia. Patient reported pain of 9 out of 10. Workup was
suggestive of possible incarceration of hernia. Patient had manual reduction performed with alleviation of pain symptoms. Patient is scheduled for definitive surgical repair coming 09/04/25. Pulmonary consultation service was requested
for optimization of the patient from pulmonary standpoint-subsequently pulmonary signed off and was asked to return with pulse oximetry in the 80s-asymptomatic 09/10/2025
#1. COPD/Asthma overlap, nrlv-77-eyvd-year smoking history-quit many years ago
- PFT in 12/2024 with 103% of predicted FEV1 along with FEV1/FVC of 61, diffusion capacity corrected for alveolar volume at 85% of predicted. Mild COPD with mild diffusion capacity impairment.
- Continue montelukast, continue DuoNeb 3 times daily scheduled.
- No current wheezing on exam, no indication for steroid therapy
Pulse oximetry does not correlate with ABG-38/305/7.47 on nonrebreather (pulse oximetry 82%)-not consistent with methemoglobinemia with pulse ox is usually falsely elevated and blood appears 'chocolate brown'
- Currently symptoms are well-controlled, continue current nebulized therapy.
CT chest 09/09/2025-no evidence for central pulm embolism, small patchy posterior right upper lobe opacification likely representing pneumonitis and mild basilar subsegmental atelectasis
CT abdomen with 09/10/2025-postsurgical changes in the left anterior pelvic wall, new probable moderate gallbladder sludge and 1 stable large gallstone, stable diverticulosis
#2. 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
- PD-L1 77%, positive K-anusha and ERBB2 mutation
- S/p radiation therapy treatment, outpatient follow-up with pulmonary and radiation oncology service
#3. H/o Smoking.
- Half pack per day smoking history for about 30 years, quit 15 years ago
- Resume outpatient follow-up with pulmonary clinic
Other medical diagnoses:
-Abdominal hernia, partially reducible, concern for incarceration. Surgery service on case, definitive surgical repair scheduled for 09/04
- Breast cancer, diagnosed with biopsy in 01/2025
- Hypertension, hyperlipidemia
Reviewed with nursing, primary team as well as surgery
Last saw Dr. Green 08/17/2025-would recommend follow-up after hospitalization
Data:
CT A/P 08/2025: Fat and bowel containing left flank ventral hernia with findings suggesting incarceration/strangulation. No evidence of intestinal obstruction.
Large amount of fecal matter throughout the colon. Progressed
Mild diverticulosis. Stable
Calcified splenic artery aneurysm. Stable
Gallstone. Stable
Moderate L2 compression fracture. New from 11/2024
ION bronchoscopy 12/2024: RUL nodule, biopsy positive for non-small cell adenocarcinoma, PD-L1 77%, + KRAS, + ERBB2
PFT 12/2024: FEV1 1.3 L, 103% of predicted, FVC 123% of predicted, FEV1/FVC of 61. Total lung capacity 107% of predicted. RV/TLC of 51. DLCO corrected for alveolar volume at 85% of predicted. Conclusion mild obstructive airway disease with
mildly decreased diffusion capacity.
Subjective Data
-
Date of Service:
Date of Service: September 11, 2025
Chief Complaint: Pulmonary Follow Up and Dyspnea Follow Up
Subjective:
Mild shortness of breath, some abdominal discomfort, no chest congestion, productive cough
Review of Systems
General: Other (Per HPI)
Objective Data
Data Reviewed
Vital Signs / I&O:
Vital Signs
Temp Pulse Resp BP Pulse Ox
97.9 F 62 16 132/66 97
09/11/25 03:09 09/11/25 03:09 09/11/25 03:09 09/11/25 03:09 09/11/25 03:09
Intake and Output
09/10/25 09/11/25 09/12/25
06:59 06:59 06:59
Intake Total 600 / 600 2062
Balance 600 / 600 2062
SaO2: 97
Nasal Cannula flow liters per minute: 2
Physical Exam
General: Respiratory Distress and Comfortable
HEENT: Normocephalic
Cardiovascular: Regular Rhythm
Respiratory: Clear, Wheeze (n), Crackles (n), Rhonchi (n), Non-Labored Respirations, Accessory Resp Muscle Use and Stridor (n)
GI: Soft and Non Distended
Neurology: Awake, Alert and No Motor Deficits
Skin: Warm, Good Color, Cyanosis (n), Jaundice (n) and Rash (n )
Labs/Micro/Reports
Lab Data
09/11/25 06:21
09/11/25 06:21
[2025-09-11] MEDS: KCL 1015 MEQ IV (09:18)
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
--- NOTE | 2025-09-11 11:20 | CM ---
Patient accepted to [facility] but per physicians patient for possible discharge sunday. CM sent request to [facility] to confirm bed availability for sunday, await response. CM will continue to follow for discharge planning needs.
Plan; SNF; placement pending availability of bed and need auth to be completed
--- NOTE | 2025-09-11 11:40 | PTCARENOTE ---
Weaned to room air, SaO2 93-94% at current. SaO2 reading measured on Left 4th finger, adequate pleth. Respirations appear even and labored. Patient offers no complaints.
[2025-09-11] MEDS: TYLENOL 650 MG PO ×2 (12:11→21:03)
--- NOTE | 2025-09-11 15:14 | PN.CDI ---
CDI
- -
CDI:
Physician Documentation Request
Admit Date: 08/31/25 11:23
Dear Doctor Jose Juan,
09/06 patient underwent Exploratory laparotomy, open repair of ventral incisional hernia
09/08 progress notes include acute anemia.
Could you please clarify the type of acute anemia:
Acute blood loss anemia
Acute anemia other please specify
Other
Use of terms such as suspected, likely, concern for, or probable (associated with a specific diagnosis that is being evaluated, monitored, or treated as if it exists) are acceptable and can be coded in the inpatient setting, when documented at the
time of discharge.
Thank you,
Karine Lezama RN, BSN
CDI Specialist
tiger text
Please use your independent medical judgment in providing your response.
[2025-09-11] MEDS: DUONEB 3 ML INH (15:33)
--- NOTE | 2025-09-11 15:57 | CM ---
Patient accepted for transfer to [facility]; pending auth will be needed; / Dr. Monroe . Patient will need covid test and confirmation with Gloria from Facility of bed availability and call/report numbers. CM will
continue to follow for discharge planning needs.
Plan;SNF when medically appropriate.
[2025-09-11] MEDS: PRAVACHOL 80 MG PO (18:10)
[2025-09-11] MEDS: LOVENOX 30 MG SC (18:10)
[2025-09-12 03:32] VITALS: BP 115/60
[2025-09-12] MEDS: TYLENOL PO (04:28)
[2025-09-12 07:10] VITALS: BP 111/76
[2025-09-12 07:18] LABS: Hematocrit 35.2 % (37.0-47.0); Hemoglobin 11.0 g/dL (12.0-16.0); Mean Corp Hgb Conc. 31.3 g/dL (33.0-37.0); Mean Corpuscular Volume 85.6 fL (81.0-99.0); Platelet Count 372 10^3/uL (130-400); Red Cell Dist. Width 17.7 % (11.5-14.5)
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
[2025-09-12 07:54] LABS: Blood Urea Nitrogen 7 mg/dl (7-17); Calcium 8.8 mg/dl (8.4-10.2); Carbon Dioxide 30 mmol/L (22-30); Chloride 103 mmol/L (98-107); Estimated Creatinine Clearance 47 ml/min; Glucose 83 mg/dl (70-99); Potassium 4.4 mmol/L (3.5-5.1); Sodium 137 mmol/L (135-145); eGFR > 60.00
[2025-09-12] MEDS: ASPIR LOW (ENTERIC COATED) 81 MG PO (08:32)
[2025-09-12] MEDS: ULTRAM 50 MG PO ×3 (08:33→21:39)
[2025-09-12] MEDS: PROTONIX IV 40 MG IV (08:33)
[2025-09-12] MEDS: TOPROL XL 25 MG PO (08:33)
[2025-09-12] MEDS: FEMARA 2.5 MG PO (08:33)
[2025-09-12] MEDS: SINGULAIR 10 MG PO (08:33)
[2025-09-12] MEDS: NSS (PRESERVATIVE FREE) 10 ML IV (08:34)
[2025-09-12] MEDS: DUONEB 3 ML INH ×2 (08:58→15:24)
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
[2025-09-12 11:00] VITALS: BP 98/61
[2025-09-12 15:25] VITALS: BP 102/68
[2025-09-12] MEDS: LOVENOX 30 MG SC (17:52)
[2025-09-12] MEDS: PRAVACHOL 80 MG PO (17:52)
[2025-09-12 19:14] VITALS: BP 111/75
[2025-09-12 23:23] VITALS: BP 104/66
[2025-09-13 03:32] VITALS: BP 111/71
[2025-09-13] MEDS: DUONEB 3 ML INH ×2 (03:44→07:40)
[2025-09-13 07:16] LABS: Hematocrit 35.3 % (37.0-47.0); Hemoglobin 11.0 g/dL (12.0-16.0); Mean Corp Hgb Conc. 31.2 g/dL (33.0-37.0); Mean Corpuscular Volume 84.7 fL (81.0-99.0); Platelet Count 382 10^3/uL (130-400); Red Cell Dist. Width 18.1 % (11.5-14.5)
[2025-09-13 07:35] LABS: Blood Urea Nitrogen 10 mg/dl (7-17); Calcium 9.2 mg/dl (8.4-10.2); Carbon Dioxide 32 mmol/L (22-30); Chloride 100 mmol/L (98-107); Estimated Creatinine Clearance 47 ml/min; Glucose 106 mg/dl (70-99); Potassium 4.1 mmol/L (3.5-5.1); Sodium 133 mmol/L (135-145); eGFR > 60.00
[2025-09-13 07:50] VITALS: BP 119/71
[2025-09-13] MEDS: ULTRAM 50 MG PO ×2 (08:09→15:50)
[2025-09-13] MEDS: ASPIR LOW (ENTERIC COATED) 81 MG PO (08:09)
[2025-09-13] MEDS: TOPROL XL 25 MG PO (08:10)
[2025-09-13] MEDS: FEMARA 2.5 MG PO (08:10)
[2025-09-13] MEDS: NSS (PRESERVATIVE FREE) 10 ML IV (08:10)
[2025-09-13] MEDS: PROTONIX IV 40 MG IV (08:10)
[2025-09-13] MEDS: SINGULAIR 10 MG PO (08:10)
[2025-09-13 08:31] LABS: COVID-19 Antigen Negative (Negative)
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
--- NOTE | 2025-09-13 09:16 | CM ---
Addendum entered by Gina Reyes 09/13/25 14:10:
[place] [address] Auth approved by Analia. Auth# [id number] as of 09/13. NRD 09/18.
Continue review to [phone]
Spoke with Gloria/[facility]-pt permitted to admit today 09/13. Auth info provided.
Transport requested-pending confirmation of time. PMNC completed and placed on chart.
[facility] transport Auth # [id number]
MD and RN updated.
[facility] RN report- [phone]
DC instruction fax - [phone]
DC plan- [facility] SNF
Addendum entered by Gina Reyes 09/13/25 12:32:
PT and OT requested for insurance auth. PT sarah noted, currently pending OT.
Once completed, will call to initiate auth with Bradley Najera. Discussed with Attending, Resident and RN.
Original Note:
Attempted to reach [facility] but was unsuccessful. Facility typically does not accept pts on weekends.
When medically stable will need PT/OT within 24hrs of dc for insurance auth.
[facility] / Dr. Monroe .
Patient will need covid test and confirmation with Gloria from Facility of bed availability and call/report numbers.
CM/SW will continue to follow to ensure a safe and timely dc.
[2025-09-13 11:38] VITALS: BP 99/59
[2025-09-13 12:46] VITALS: BP 116/70; PULSE 85; O2SAT 95
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
[2025-09-13 15:17] VITALS: BP 107/62
== END 2025-09-13 17:37 | DRG 353 ==
LOC: 2 NORTH 11:23
PROVIDERS: Physician Assistant; Registered Nurse; Student in an Organized Health Care Education/Training Program; Surgery; ADMITTING PHYSICIAN Internal Medicine; ATTENDING PHYSICIAN Internal Medicine; CONSULT PHYSICIAN Internal Medicine; CONSULT PHYSICIAN Student in an Organized Health Care Education/Training Program; CONSULT PHYSICIAN Surgery; EMERGENCY PHYSICIAN Emergency Medicine; FAMILY PHYSICIAN Family Medicine
PROC: 8E0W4CZ Robotic Assisted Procedure of Trunk Region, Percutaneous Endoscopic Approach (ICD-10-PCS; 2025-09-04)
PROC: 0WUF4JZ Supplement Abdominal Wall with Synthetic Substitute, Percutaneous Endoscopic Approach (ICD-10-PCS; 2025-09-04)
PROC: 0WQF0ZZ Repair Abdominal Wall, Open Approach (ICD-10-PCS; 2025-09-06)
DX: K43.0 Incisional hernia with obstruction, without gangrene (principal); J96.01 Acute respiratory failure with hypoxia; I47.10 Supraventricular tachycardia, unspecified; I47.20 Ventricular tachycardia, unspecified; K56.7 Ileus, unspecified; E87.1 Hypo-osmolality and hyponatremia; M48.50XA Collapsed vertebra, not elsewhere classified, site unspecified, initial encounter for fracture; K40.30 Unilateral inguinal hernia, with obstruction, without gangrene, not specified as recurrent; J44.89 Other specified chronic obstructive pulmonary disease; I10 Essential (primary) hypertension; E78.00 Pure hypercholesterolemia, unspecified; V89.2XXS Person injured in unspecified motor-vehicle accident, traffic, sequela; Z66 Do not resuscitate; D64.9 Anemia, unspecified; E87.6 Hypokalemia; G89.21 Chronic pain due to trauma; M54.9 Dorsalgia, unspecified; Z85.3 Personal history of malignant neoplasm of breast; Z85.118 Personal history of other malignant neoplasm of bronchus and lung; Z11.52 Encounter for screening for COVID-19; Z92.3 Personal history of irradiation; Z87.891 Personal history of nicotine dependence; Z79.82 Long term (current) use of aspirin
CPT/HCPCS: 36600; 71275; 74018; 74019; 74176; 74177; 80048; 80053; 82805; 83605; 83690; 85014; 85018; 85025; 85027; 87811; 92610; 93005; 94640; 96374; 96376; 97110; 97116; 97162; 97167; 97168; 97530; 97535; 99285; C1781; Q9967